=== PATIENT | female | born 1950 | race American Indian/Alaskan Native ===

== ENCOUNTER 2016-11-23 08:27 | Outpatient (CLI) | payer MEDICARE ==
--- NOTE | 2016-11-23 10:27 | Mammography Report ---
BONE DENSITY STUDY: DEFINITIONS: BMD = Bone Mineral Density T-score = BMD related to mean peak bone mass of young adult (mean expressed in Standard Deviation) Z-score = Age matched BMD expressed in SD World Health Organization (WHO) Diagnostic Criteria Normal T-score > -1 SD Osteopenia T-score between -1 and -2.4 SD Osteoporosis T-score -2.5 SD or below FINDINGS: The weighted average BMD of lumbar spine L1-L4 is 0.958 with a T-score of -0.8. The weighted average BMD of hip is 0.877 with a T-score of -0.5. IMPRESSION: The patient's T-score is diagnostic for normal bone density and low relative risk for fracture. NOTE: BMD is not the only risk factor for fracture; also consider factors such as the patient's age, risk of falling, previous osteoporotic fracture, family history of osteoporotic fractures, current smoker, and low body weight. Fitzpatrick's triangle is a region of interest in femur, predominantly of trabecular bone. It is not a true anatomic site, and [facility] does not recommend its use clinically.
== END 2016-11-23 08:28 | disposition home or self-care (01) ==
LOC: MAMMO 08:27
PROVIDERS: ATTEND Emergency Medicine
DX: M85.89 Other specified disorders of bone density and structure, multiple sites (principal)
CPT/HCPCS: 77080

== ENCOUNTER 2017-08-03 12:45 | Emergency (ER) | payer MEDICARE, OTHER ==
[2017-08-03] MEDS ORDERED: TYLENOL PO ONE (12:52)
[2017-08-03] MEDS ORDERED: TYLENOL ONE (12:55)
[2017-08-03] MEDS ORDERED: ZOFRAN ODT PO ONE (16:26)
[2017-08-03] MEDS ORDERED: MORPHINE IV ONE ×2 (16:26→20:51)
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
[2017-08-03 17:04] LABS: Basophils % (Auto) 0.4 % (0.0-1.8); Eosinophils # (Auto) 0.1 K/mm3 (0.0-0.4); Eosinophils % (Auto) 1.5 % (0.0-4.3); Hematocrit 39.1 % (30.3-42.9); Hemoglobin 13.2 gm/dl (10.1-14.3); Lymphocytes # (Auto) 2.7 K/mm3 (1.2-5.4); Lymphocytes % (Auto) 38.8 % (13.4-35.0); Mean Corpuscular HGB Conc 34 % (30-34); Mean Corpuscular Hemoglobin 32 pg (28-32); Mean Corpuscular Volume 94 fl (79-97); Monocytes # (Auto) 0.5 K/mm3 (0.0-0.8); Monocytes % (Auto) 7.1 % (0.0-7.3); Platelet Count 359 K/mm3 (140-440); Red Blood Count 4.18 M/mm3 (3.65-5.03)
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
[2017-08-03 17:14] LABS: INR 0.99 (0.87-1.13)
[2017-08-03 17:15] LABS: Partial Thromboplastin Time 33.7 Sec. (24.2-36.6)
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
[2017-08-03 18:31] VITALS: BP 108/73
[2017-08-03 19:52] LABS: Albumin 4.4 g/dL (3.9-5); Calcium 10.1 mg/dL (8.4-10.2)
[2017-08-03 20:22] LABS: Bacteria,Urine 1+ /HPF (Negative); Bilirubin,Urine NEG (Negative); Blood,Urine SM (Negative); Color,Urine Straw (Yellow); Hyaline Casts,Urine 1 /LPF; Nitrite,Urine NEG (Negative); Protein,Urine <15 mg/dL mg/dL (Negative); Urobilinogen,Urine < 2.0 mg/dL (<2.0)
== END 2017-08-03 21:29 | disposition home or self-care (01) ==
LOC: ED 12:45
DX: S16.1XXA Strain of muscle, fascia and tendon at neck level, initial encounter (principal); I10 Essential (primary) hypertension; E11.9 Type 2 diabetes mellitus without complications; R07.89 Other chest pain; M50.30 Other cervical disc degeneration, unspecified cervical region; K44.9 Diaphragmatic hernia without obstruction or gangrene; N34.2 Other urethritis; R10.31 Right lower quadrant pain; Z88.0 Allergy status to penicillin; Z88.1 Allergy status to other antibiotic agents; V49.49XA Driver injured in collision with other motor vehicles in traffic accident, initial encounter; Y93.89 Activity, other specified; Y92.89 Other specified places as the place of occurrence of the external cause; Y99.8 Other external cause status
CPT/HCPCS: 36415; 70450; 71250; 72125; 74176; 80053; 81001; 84484; 85025; 85610; 85730; 93005; 93010; 96374; 99284; J2270; Q0162

== ENCOUNTER 2018-08-31 17:32 | Inpatient (IN) | payer MEDICARE ==
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
[2018-08-31 18:44] LABS: Basophils # (Auto) 0.1 K/mm3 (0.0-0.1); Basophils % (Auto) 0.7 % (0.0-1.8); Eosinophils # (Auto) 0.2 K/mm3 (0.0-0.4); Eosinophils % (Auto) 1.9 % (0.0-4.3); Hematocrit 38.3 % (30.3-42.9); Hemoglobin 13.1 gm/dl (10.1-14.3); Lymphocytes # (Auto) 2.8 K/mm3 (1.2-5.4); Lymphocytes % (Auto) 31.4 % (13.4-35.0); Mean Corpuscular HGB Conc 34 % (30-34); Mean Corpuscular Volume 92 fl (79-97); Monocytes # (Auto) 0.6 K/mm3 (0.0-0.8); Platelet Count 462 K/mm3 (140-440); Red Blood Count 4.17 M/mm3 (3.65-5.03); Red Cell Distribution Width 13.4 % (13.2-15.2)
[2018-08-31 18:47] LABS: INR 0.9 (0.87-1.13)
[2018-08-31 18:48] LABS: Partial Thromboplastin Time 22.1 Sec. (24.2-36.6)
[2018-08-31 18:58] LABS: Creatine Kinase MB 2.8 ng/mL (0.0-4.0)
[2018-08-31 18:59] LABS: BUN/Creatinine Ratio 13; Blood Urea Nitrogen 16 mg/dL (7-17); Calcium 9.9 mg/dL (8.4-10.2); Hemolysis Index 2
[2018-08-31 19:04] LABS: Free T4 (Free Thyroxine) 1.08 ng/dL (0.76-1.46)
--- NOTE | 2018-08-31 19:06 | XRay Report ---
FINAL REPORT PROCEDURE: Chest. TECHNIQUE: Portable AP view. HISTORY: Dizziness, palpitations, shortness of breath. COMPARISON: No prior studies are available for comparison. FINDINGS: The heart size is normal. There is mild tortuosity of the thoracic aorta. There is probably a large h iatal hernia. The lungs are clear and well expanded. There are no pleural effusions. The regional ske leton appears intact. IMPRESSION: Large hiatal hernia. No evidence of acute disease.
[2018-08-31] MEDS ORDERED: K-DUR PO ONE (19:17)
[2018-08-31] MEDS ORDERED: MAGNESIUM SULFATE 2GM/50ML 2 GM/50 ML BAG IV ONE (19:17)
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
[2018-08-31] MEDS ORDERED: MORPHINE IV ONE (21:32)
[2018-08-31] MEDS ORDERED: ZOFRAN IV ONE (21:32)
[2018-08-31] MEDS ORDERED: TYLENOL PO PRN (22:32)
[2018-08-31] MEDS ORDERED: ZOFRAN IV PRN (22:33)
[2018-08-31] MEDS ORDERED: MORPHINE IV PRN (22:33)
[2018-08-31] MEDS ORDERED: NITROSTAT SL PRN (22:34)
[2018-08-31] MEDS: NITRO-BID 2% TP SCH (23:24)
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
[2018-09-01 05:55] LABS: Creatine Kinase MB 2.2 ng/mL (0.0-4.0)
[2018-09-01] MEDS: NITRO-BID 2% TP SCH ×4 (06:24→18:29)
[2018-09-01 07:59] LABS: Calcium 9.7 mg/dL (8.4-10.2)
[2018-09-01] MEDS ORDERED: LEXISCAN IV ONE ×2 (10:26→10:27)
[2018-09-01] MEDS: ASPIRIN PO SCH (12:43)
--- NOTE | 2018-09-01 14:09 | Vascular Lab Report ---
FINAL REPORT EXAM: VL CAROTID DUPLEX BILAT HISTORY: LEFT SIDED WEAKNESS AND NUMBNESS COMPARISON: None. TECHNIQUE: Duplex Doppler ultrasound of the bilateral carotid arteries was performed. FINDINGS: The right common carotid artery is patent. There is a small amount of intimal thickening of the right internal carotid artery without significant stenosis (less than 50 percent). The right external bryan tid artery is patent. The right vertebral artery is antegrade in flow. The left common carotid artery is patent. There is a small amount of intimal thickening of the left c arotid bulb and proximal left internal carotid artery without significant stenosis (less than 50 perc ent). The left external carotid artery is patent. The left vertebral artery is antegrade in flow Peak systolic velocities (cm/sec) are as follows: Right common carotid artery: 90 Right internal carotid artery: 73.1 Right external carotid artery: 30.9 Left common carotid artery: 99.6 Left internal carotid artery: 60.3 Left external carotid artery: 70.2 Peak systolic velocity ratio between the right internal carotid artery and the right common carotid a rtery: 0.81 Peak systolic velocity ratio between the left internal carotid artery and left common carotid artery: 0.61 IMPRESSION: Only small amount of intimal thickening of the bilateral internal carotid arteries without significan t stenosis (less than 50 percent).
--- NOTE | 2018-09-01 14:32 | Treadmill Report ---
LEXISCAN STRESS TEST REPORT REASON FOR STUDY: Chest pain. IMAGING PROTOCOL: The patient received 0.4 mg of Lexiscan intravenously over 10 seconds. Technetium-99m tetrofosmin was subsequently injected. Baseline EKG, normal sinus rhythm. Lexiscan EKG, no ischemic changes. No chest pain. No arrhythmias. IMPRESSION: Electrocardiographically negative stress test. Nuclear imaging report to follow. JOB# [id number]/NTS
--- NOTE | 2018-09-01 16:48 | Progress Note ---
Assessment and Plan Assessment and plan: 67-year-old female patient with significant past medical history of diabetes hypertension was admitted with left-sided upper and lower extremity tingling and numbness and weakness., Neuro workup is in progress, neurology evaluation pending --Left-sided weakness and numbness; Not a candidate for TPA Continue aspirin and statin Neuro workup is in progress,, Negative workup so far, pending neurology consultation, Follow-up MRI/MRA studies Physical therapy, occupational therapy, rehabilitation Workup: CT head without contrast; no acute abnormality noted CT cervical spine; no acute abnormality noted Echocardiogram; left ventricle ejection fraction 70-75%, abnormal diastolic filling Impaired relaxation Carotid Doppler; small amount of intimal thickening in the bilateral internal carotid arteries less than 50% stenosis Exercise stress test; negative for reversible ischemia --Chest pain; atypical; probably noncardiac Stress test negative, follow echocardiogram Continue current cardiac medications --Gastroesophageal reflux disease; Protonix --Hypokalemia; replace per protocol and monitor levels --Hypomagnesemia; to place per protocol and monitor levels --DVT prophylaxis; Lovenox Closely monitor the patient and adjust the management as needed Follow-up neurology evaluation and recommendations Disposition; follow neurology evaluation and recommendations Follow MRI/MRA If negative and stable condition discharged home tomorrow History Interval history: Patient seen and examined medical records reviewed Admitted with left-sided weakness and chest pain Stress test negative for reversible ischemia Neuro workup is in progress Patient still has left-sided lower extremity weakness Alert awake oriented 3 vital signs reviewed Hospitalist Physical - Constitutional Vitals: Temp Pulse Resp BP Pulse Ox 98.6 F 98 H 16 92/58 98 09/01/18 06:22 09/01/18 10:52 09/01/18 08:29 09/01/18 10:52 08/31/18 23:04 General appearance: Present: no acute distress, mild distress, well-nourished. Absent: cachectic, disheveled - EENT Eyes: Present: PERRL, EOM intact - Neck Neck: Present: supple, normal ROM - Respiratory Respiratory effort: normal Respiratory: bilateral: diminished, negative: rales, rhonchi, wheezing - Cardiovascular Rhythm: regular Heart Sounds: Present: S1 & S2 - Extremities Extremities: no ischemia, No edema - Abdominal General gastrointestinal: soft, non-tender, non-distended, normal bowel sounds - Integumentary Integumentary: Present: clear, warm - Psychiatric Psychiatric: appropriate mood/affect, cooperative - Neurologic Neurologic: other (left lower extremity weakness) Results - Labs CBC & Chem 7: 08/31/18 18:29 09/01/18 05:11 Labs: Laboratory Last Values WBC 8.8 K/mm3 (4.5-11.0) 08/31/18 18: RBC 4.17 M/mm3 (3.65-5.03) 08/31/18 18: Hgb 13.1 gm/dl (10.1-14.3) 08/31/18 18: Hct 38.3 % (30.3-42.9) 08/31/18 18: MCV 92 fl (79-97) 08/31/18 18: MCH 31 pg (28-32) 08/31/18 18: MCHC 34 % (30-34) 08/31/18 18: RDW 13.4 % (13.2-15.2) 08/31/18 18: Plt Count 462 K/mm3 (140-440) H 08/31/18 18: Lymph % (Auto) 31.4 % (13.4-35.0) 08/31/18 18: [place] % (Auto) 7.0 % (0.0-7.3) 08/31/18 18: Eos % (Auto) 1.9 % (0.0-4.3) 08/31/18 18: Baso % (Auto) 0.7 % (0.0-1.8) 08/31/18 18: Lymph # 2.8 K/mm3 (1.2-5.4) 08/31/18 18: [place] # 0.6 K/mm3 (0.0-0.8) 08/31/18 18: Eos # 0.2 K/mm3 (0.0-0.4) 08/31/18 18: Baso # 0.1 K/mm3 (0.0-0.1) 08/31/18 18: Seg Neutrophils % 59.0 % (40.0-70.0) 08/31/18 18: Seg Neutrophils # 5.2 K/mm3 (1.8-7.7) 08/31/18 18:29 PT 12.6 Sec. (12.2-14.9) 08/31/18 18:29 INR 0.90 (0.87-1.13) 08/31/18 18:29 APTT 22.1 Sec. (24.2-36.6) L 08/31/18 18:29 Sodium 143 mmol/L (137-145) 09/01/18 05:11 Potassium 3.6 mmol/L (3.6-5.0) 09/01/18 05:11 Chloride 102.6 mmol/L (98-107) 09/01/18 05:11 Carbon Dioxide 23 mmol/L (22-30) 09/01/18 05:11 Anion Gap 21 mmol/L 09/01/18 05:11 BUN 16 mg/dL (7-17) 09/01/18 05:11 Creatinine 1.2 mg/dL (0.7-1.2) 09/01/18 05:11 Estimated GFR 54 ml/min 09/01/18 05:11 BUN/Creatinine Ratio 13 % 09/01/18 05:11 Glucose 101 mg/dL (65-100) H 09/01/18 05:11 POC Glucose 85 (70-105) 09/01/18 12:58 Calcium 9.7 mg/dL (8.4-10.2) 09/01/18 05:11 Magnesium 1.50 mg/dL (1.7-2.3) L 08/31/18 18:29 Total Creatine Kinase 160 units/L (30-135) H 09/01/18 14:51 CK-MB (CK-2) 2.0 ng/mL (0.0-4.0) 09/01/18 14:51 CK-MB (CK-2) Rel Index 1.2 (0-4) 09/01/18 14:51 Troponin T < 0.010 ng/mL (0.00-0.029) 09/01/18 05:11 TSH 3.280 mlU/mL (0.270-4.200) 08/31/18 18:29 Free T4 1.08 ng/dL (0.76-1.46) 08/31/18 18:29
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
--- NOTE | 2018-09-01 22:20 | Treadmill Report ---
THALLIUM REPORT REASON FOR STUDY: Chest pain. IMAGING PROTOCOL: The patient received 10.16 mCi of Tc-99m Tetrofosmin for rest imaging and 30.04 mCi of technetium-99m Tetrofosmin for stress imaging. Imaging for all procedures was completed 30-90 minutes following the initial injection of Technetium 99m Tetrofosmin. SPECT imaging in the 180 degree arc was performed in the right anterior oblique projection. Computerized reconstruction of the images was performed for analysis. NUCLEAR IMAGING RESULTS: Normal left ventricular cavity size with no change from stress to rest. Distribution of radionuclide within the left ventricle revealed normal myocardial photon uptake with stress and rest imaging. Gated SPECT imaging revealed hyperdynamic global left ventricular systolic function. The calculated left ventricular ejection fraction is 81%. IMPRESSION: Normal stress and rest myocardial perfusion imaging. Hyperdynamic global left ventricular systolic function. EF 81%. No evidence of significant stress-induced ischemia or prior infarction. JOB# [id number] JUDI/LEONELA
[2018-09-01] MEDS: PEPCID PO SCH (22:29)
[2018-09-02 06:56] LABS: Calcium 9.2 mg/dL (8.4-10.2); Chol/HDL Ratio 2.85 %
[2018-09-02] MEDS: NITRO-BID 2% TP SCH ×4 (08:21→18:05)
[2018-09-02] MEDS ORDERED: K-DUR PO ONE (10:00)
[2018-09-02] MEDS: ASPIRIN PO SCH (10:12)
[2018-09-02] MEDS: PEPCID PO SCH ×2 (10:12→21:34)
--- NOTE | 2018-09-02 15:50 | Progress Note ---
Assessment and Plan Assessment and plan: 67-year-old female patient with significant past medical history of diabetes hypertension was admitted with left-sided upper and lower extremity tingling and numbness and weakness * CT head without contrast; no acute abnormality noted * CT cervical spine; no acute abnormality noted * Echocardiogram; left ventricle ejection fraction 70-75%, abnormal diastolic filling, Impaired relaxation * Carotid Doppler; small amount of intimal thickening in the bilateral internal carotid arteries less than 50% stenosis * Exercise stress test; negative for reversible ischemia --Left-sided weakness and numbness; Not a candidate for TPA, Continue aspirin and statin Neuro workup is in progress,, Negative workup so far, pending neurology consultation, Follow-up MRI/MRA studies Physical therapy, occupational therapy, rehabilitation --Chest pain; atypical; probably noncardiac Stress test negative, follow echocardiogram Continue current cardiac medications --Gastroesophageal reflux disease; Protonix --Hypokalemia; replace per protocol and monitor levels --Hypomagnesemia; to place per protocol and monitor levels --DVT prophylaxis; Lovenox Closely monitor the patient and adjust the management as needed Follow-up neurology evaluation and recommendations Disposition; follow neurology evaluation and recommendations Follow MRI/MRA brain Still waiting on Mri brain History Interval history: Patient was seen and examined. Follow-up on current diagnosis of left side weakness. Overnight uneventful. Patient denies any chest pain, shortness breath, nausea/vomiting or severe headaches. Imaging, nursing note, chart, labs and old chart reviewed. Discussed with patient. Hospitalist Physical - Physical exam Narrative exam: Gen: WDWN, NAD, Awake, Alert, Orientated HEENT: NCAT, EOMI, PERRL, OP Clear Neck: supple, no adenopathy, no thyromegaly, no JVD CVS/Heart: RRR, normal S1S2, pulses present bilaterally Chest/Lungs: CTA B, Symmetrical chest expansion, good air entry bilaterally GI/Abdomen: soft, NTND, good bowel sounds, no guarding or rebound /Bladder: no suprapubic tenderness, no CVA or paraspinal tenderness Extermity/Skin: no c/c/e, no obvious rash MSK: FROM x 4 Neuro: CN 2-12 grossly intact, no new focal deficits Psych: calm - Constitutional Vitals: Temp Pulse Resp BP Pulse Ox 98.6 F 74 18 92/58 97 09/01/18 06:22 09/02/18 07:00 09/02/18 09:19 09/01/18 10:52 09/02/18 09:19 General appearance: Present: no acute distress, mild distress, well-nourished. Absent: cachectic, disheveled Results - Labs CBC & Chem 7: 08/31/18 18:29 09/02/18 05:21 Labs: Laboratory Last Values WBC 8.8 K/mm3 (4.5-11.0) 08/31/18 18: RBC 4.17 M/mm3 (3.65-5.03) 08/31/18 18: Hgb 13.1 gm/dl (10.1-14.3) 08/31/18 18: Hct 38.3 % (30.3-42.9) 08/31/18 18: MCV 92 fl (79-97) 08/31/18 18: MCH 31 pg (28-32) 08/31/18 18: MCHC 34 % (30-34) 08/31/18 18: RDW 13.4 % (13.2-15.2) 08/31/18 18: Plt Count 462 K/mm3 (140-440) H 08/31/18 18: Lymph % (Auto) 31.4 % (13.4-35.0) 08/31/18 18: [place] % (Auto) 7.0 % (0.0-7.3) 08/31/18 18: Eos % (Auto) 1.9 % (0.0-4.3) 08/31/18 18: Baso % (Auto) 0.7 % (0.0-1.8) 08/31/18 18: Lymph # 2.8 K/mm3 (1.2-5.4) 08/31/18 18: [place] # 0.6 K/mm3 (0.0-0.8) 08/31/18 18: Eos # 0.2 K/mm3 (0.0-0.4) 08/31/18 18: Baso # 0.1 K/mm3 (0.0-0.1) 08/31/18 18: Seg Neutrophils % 59.0 % (40.0-70.0) 08/31/18 18:29 Seg Neutrophils # 5.2 K/mm3 (1.8-7.7) 08/31/18 18:29 PT 12.6 Sec. (12.2-14.9) 08/31/18 18:29 INR 0.90 (0.87-1.13) 08/31/18 18:29 APTT 22.1 Sec. (24.2-36.6) L 08/31/18 18:29 Sodium 142 mmol/L (137-145) 09/02/18 05:21 Potassium 3.5 mmol/L (3.6-5.0) L 09/02/18 05:21 Chloride 101.4 mmol/L (98-107) 09/02/18 05:21 Carbon Dioxide 27 mmol/L (22-30) 09/02/18 05:21 Anion Gap 17 mmol/L 09/02/18 05:21 BUN 23 mg/dL (7-17) H 09/02/18 05:21 Creatinine 1.5 mg/dL (0.7-1.2) H 09/02/18 05:21 Estimated GFR 42 ml/min 09/02/18 05:21 BUN/Creatinine Ratio 15 % 09/02/18 05:21 Glucose 115 mg/dL (65-100) H 09/02/18 05:21 POC Glucose 179 (70-105) H 09/02/18 11:27 Calcium 9.2 mg/dL (8.4-10.2) 09/02/18 05:21 Phosphorus 3.70 mg/dL (2.5-4.5) 09/02/18 05:21 Magnesium 1.90 mg/dL (1.7-2.3) 09/02/18 05:21 Total Creatine Kinase 160 units/L (30-135) H 09/01/18 14:51 CK-MB (CK-2) 2.0 ng/mL (0.0-4.0) 09/01/18 14:51 CK-MB (CK-2) Rel Index 1.2 (0-4) 09/01/18 14:51 Troponin T < 0.010 ng/mL (0.00-0.029) 09/01/18 05:11 Triglycerides 65 mg/dL (2-149) 09/02/18 05:21 Cholesterol 117 mg/dL (50-199) 09/02/18 05:21 LDL Cholesterol Direct 71 mg/dL (50-130) 09/02/18 05:21 HDL Cholesterol 41 mg/dL (40-59) 09/02/18 05:21 Cholesterol/HDL Ratio 2.85 % 09/02/18 05:21 TSH 3.280 mlU/mL (0.270-4.200) 08/31/18 18:29 Free T4 1.08 ng/dL (0.76-1.46) 08/31/18 18:29
--- NOTE | 2018-09-02 21:23 | Magnetic Resonance Report ---
FINAL REPORT PROCEDURE: MR BRAIN WO CON TECHNIQUE: Magnetic resonance imaging of the brain was performed without contrast material. HISTORY: left sided weaknessinpatientsome pt motion; pt has persistent dry cough; best images sent COMPARISON: No prior studies are available for comparison. FINDINGS: Skull base and calvarium: Normal. Paranasal sinuses: The visualized paranasal sinuses are clear. Cerebellum: No evidence of hemorrhage, ischemia or mass. Brainstem: No evidence of hemorrhage, ischemia or mass. Cerebrum: Multiple small nonspecific focal signal abnormalities are noted involving subcortical and c entral white matter bilaterally which are predominantly isointense on T1 and hyperintense on FLAIR an d T2 weighted images without any associated mass effect. Diffusion-weighted images failed to demonstr ate any hyperintense signal abnormalities.. Ventricles: Normal in size and morphology for the patient's age. Pituitary gland and sella: Normal. Globes and orbits: Normal. Vasculature: Normal arterial and venous flow voids. Other: None. IMPRESSION: No acute intracranial abnormality Multiple nonspecific bilateral cerebral white matter signal abnormalities are of nonspecific nature a nd most likely represent chronic small vessel ischemic changes. However a demyelinating process canno t be excluded.
--- NOTE | 2018-09-02 21:26 | Magnetic Resonance Report ---
FINAL REPORT PROCEDURE: MR MRA/MRV HEAD WO CON TECHNIQUE: Axial 3-D [id number] MR angiography of the [place] and brain was performed. The source images were reconstructed in various views using maximum intensity projection. HISTORY: left sided weaknessinpatient COMPARISON: No prior studies are available for comparison. FINDINGS: Vertebral arteries: Normal. 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 This is a no rmal variation. Internal carotid arteries: Normal. Anterior cerebral arteries: Normal. Middle cerebral arteries: Normal. Posterior cerebral arteries: Normal. Aneurysms: None. IMPRESSION: Unremarkable study
[2018-09-03 06:03] LABS: Calcium 9.3 mg/dL (8.4-10.2)
[2018-09-03] MEDS: ASPIRIN PO SCH (09:55)
[2018-09-03] MEDS: NITRO-BID 2% TP SCH (09:56)
[2018-09-03] MEDS: PEPCID PO SCH (09:56)
--- NOTE | 2018-09-03 12:19 | Discharge Summary ---
Providers - Providers Date of Admission: 08/31/18 21:42 Date of discharge: 09/03/18 Attending physician: SARAI URRUTIA 09/01/18 06:00 Consult to Physician [CONS] Routine Comment: Consulting Provider: SUZIE MCCLAIN Physician Instructions: Reason For Exam: LEFT SIDED NUMBNESS AND WEAKNESS Physical Therapy Evaluation and Treat [CONS] Routine Comment: Reason For Exam: LEFT SIDED WEAKNESS Primary care physician: KIMBERLEY CARNES Hospitalization Condition: Stable Hospital course: 67-year-old female patient with significant past medical history of diabetes hypertension was admitted with left-sided upper and lower extremity tingling and numbness and weakness * CT head without contrast; no acute abnormality noted * CT cervical spine; no acute abnormality noted * Echocardiogram; left ventricle ejection fraction 70-75%, abnormal diastolic filling, Impaired relaxation * Carotid Doppler; small amount of intimal thickening in the bilateral internal carotid arteries less than 50% stenosis * Exercise stress test; negative for reversible ischemia --Left-sided weakness and numbness; most likely Cervical Radiculopathy --Chest pain; atypical; probably noncardiac --Gastroesophageal reflux disease; Protonix --Hypokalemia; replace per protocol and monitor levels --Hypomagnesemia; to place per protocol and monitor levels MRI/MRA brain, unremarkable Disposition: DC- TO HOME OR SELFCARE Time spent for discharge: 34 minutes Core Measure Documentation - Palliative Care Palliative Care/ Comfort Measures: Not Applicable - Core Measures Any of the following diagnoses?: none - VTE Discharge Requirements Deep Vein Thrombosis/Pulmonary Embolism Present on Admission: No Has pt received <5 days of overlap therapy or INR<2.0: No Anticoagulant overlap therapy prescribed at discharge: No Contraindication No Overlap Therapy order at DC: Not Indicated Exam - Physical Exam Narrative exam: Gen: WDWN, NAD, Awake, Alert, Orientated HEENT: NCAT, EOMI, PERRL, OP Clear Neck: supple, no adenopathy, no thyromegaly, no JVD CVS/Heart: RRR, normal S1S2, pulses present bilaterally Chest/Lungs: CTA B, Symmetrical chest expansion, good air entry bilaterally GI/Abdomen: soft, NTND, good bowel sounds, no guarding or rebound /Bladder: no suprapubic tenderness, no CVA or paraspinal tenderness Extermity/Skin: no c/c/e, no obvious rash MSK: FROM x 4 Neuro: CN 2-12 grossly intact, no new focal deficits Psych: calm - Constitutional Vitals: Temp Pulse Resp BP Pulse Ox 98.2 F 76 16 110/73 98 09/03/18 09:34 09/03/18 09:56 09/03/18 09:34 09/03/18 09:56 09/03/18 09:34 Plan Activity: other (no strenous activity unless cleared by PCP) Diet: low salt, diabetic Follow up with: KIMBERLEY CARNES MD [Primary Care Provider] - 7 Days
[2018-09-03 13:42] VITALS: BP 94/64
== END 2018-09-03 18:30 | disposition home or self-care (01) | DRG 74 ==
LOC: ED 17:32 → 4A 21:42
PROVIDERS: ADMIT Internal Medicine; ATTEND Internal Medicine
DX: M54.12 Radiculopathy, cervical region (principal); E87.6 Hypokalemia; R20.0 Anesthesia of skin; E83.42 Hypomagnesemia; N18.3 Chronic kidney disease, stage 3 (moderate); E11.22 Type 2 diabetes mellitus with diabetic chronic kidney disease; I12.9 Hypertensive chronic kidney disease with stage 1 through stage 4 chronic kidney disease, or unspecified chronic kidney disease; R07.89 Other chest pain; K21.9 Gastro-esophageal reflux disease without esophagitis; Z88.1 Allergy status to other antibiotic agents; Z88.0 Allergy status to penicillin; Z79.899 Other long term (current) drug therapy
CPT/HCPCS: 36415; 70450; 70544; 70551; 71045; 72125; 78452; 80048; 80061; 82550; 82553; 82962; 83735; 84100; 84439; 84443; 84484; 85025; 85610; 85730; 93005; 93010; 93017; 93306; 93880; G0378; A9270-GY; A9502; J2270; J2405; J2785; J3475

== ENCOUNTER 2019-02-27 05:41 | Inpatient (IN) | payer MEDICARE, OTHER ==
--- NOTE | 2019-02-27 06:27 | Emergency Department Report ---
ED Chest Pain HPI - General Chief Complaint: Chest Pain Stated Complaint: CHEST PAIN Time Seen by Provider: 02/27/19 06:01 Source: patient, EMS Mode of arrival: Stretcher Limitations: No Limitations - History of Present Illness Initial Comments: 68-year-old female with history of hypertension, diabetes presents to ED with left-sided chest pain since yesterday. Patient describes pain as intermittent tightness. Denies any aggravating or alleviating factors. Denies nausea, vomiting, shortness of breath, diaphoresis or leg pain. MD Complaint: chest pain -: days(s) (1) Onset: during rest Pain Location: left chest Pain Radiation: none Severity: moderate Severity scale (0 -10): 7 Quality: tightness Consistency: intermittent Improves With: nothing Worsens With: nothing re: denies: nausea, vomting, diaphoresis, dyspnea Other Symptoms: leg swelling. denies: cough, fever - Related Data Home Medications Medication Instructions Recorded Confirmed Last Taken AtorvaSTATin 40 mg PO DAILY 02/27/19 02/27/19 Unknown Chlorthalidone 25 mg PO DAILY 02/27/19 02/27/19 Unknown HumaLOG 12 units SUB-Q BID 02/27/19 02/27/19 Unknown Lantus VIAL 50 units SUB-Q HS 02/27/19 02/27/19 Unknown Lisinopril 10 mg PO 02/27/19 Unknown metFORMIN 500 mg PO DAILY 02/27/19 02/27/19 Unknown Allergies Allergy/AdvReac Type Severity Reaction Status Date / Time levofloxacin [From Levaquin] Allergy Swelling Verified 02/27/19 05:59 Penicillins Allergy Nausea Verified 02/27/19 05:59 Heart Score - HEART Score History: Slightly suspicious EKG: Normal Age: > 65 Risk factors: 1-2 risk factors Troponin: < normal limit HEART Score: 3 - Critical Actions Critical Actions: 0-3 pts:0.9-1.7%risk of adverse cardiac event.Candidate for discharge ED Review of Systems ROS: Stated complaint: CHEST PAIN Other details as noted in HPI Comment: All other systems reviewed and negative Constitutional: denies: chills, fever Respiratory: denies: cough, shortness of breath Cardiovascular: chest pain ED Past Medical Hx - Past Medical History Previous Medical History?: Yes Hx Hypertension: Yes Hx Diabetes: Yes Hx Renal Disease: Yes Additional medical history: high cholesterol - Surgical History Past Surgical History?: No - Social History Smoking Status: Never Smoker Substance Use Type: None - Medications Home Medications: Home Medications Medication Instructions Recorded Confirmed Last Taken Type AtorvaSTATin 40 mg PO DAILY 02/27/19 02/27/19 Unknown History Chlorthalidone 25 mg PO DAILY 02/27/19 02/27/19 Unknown History HumaLOG 12 units SUB-Q BID 02/27/19 02/27/19 Unknown History Lantus VIAL 50 units SUB-Q HS 02/27/19 02/27/19 Unknown History Lisinopril 10 mg PO 02/27/19 Unknown History metFORMIN 500 mg PO DAILY 02/27/19 02/27/19 Unknown History ED Physical Exam - General Limitations: No Limitations General appearance: alert, in no apparent distress - Head Head exam: Present: atraumatic, normocephalic - Eye Eye exam: Present: normal appearance - ENT ENT exam: Present: mucous membranes moist - Neck Neck exam: Present: normal inspection - Respiratory Respiratory exam: Present: normal lung sounds bilaterally, chest wall tenderness. Absent: respiratory distress - Cardiovascular Cardiovascular Exam: Present: regular rate, normal rhythm - GI/Abdominal GI/Abdominal exam: Present: soft. Absent: distended, tenderness - Extremities Exam Extremities exam: Present: normal inspection. Absent: pedal edema, calf tenderness - Neurological Exam Neurological exam: Present: alert, oriented X3 - Psychiatric Psychiatric exam: Present: normal affect, normal mood - Skin Skin exam: Present: warm, dry, intact, normal color ED Course Vital Signs 02/27/19 02/27/19 02/27/19 05:59 06:00 06:31 Temperature 98.2 F Pulse Rate 72 77 73 Respiratory 13 14 9 L Rate Blood Pressure 135/92 131/86 128/80 Blood Pressure 135/92 [Left] O2 Sat by Pulse 98 98 Oximetry ED Medical Decision Making - Lab Data Result diagrams: 02/27/19 06:31 02/27/19 06:31 - EKG Data -: EKG Interpreted by Me EKG shows normal: sinus rhythm, axis, intervals, QRS complexes, ST-T waves Rate: normal - EKG Data Interpretation: no acute changes - Radiology Data Radiology results: report reviewed, image reviewed - Medical Decision Making 68-year-old female with history of hypertension and diabetes presents to the ED with left-sided chest pain x 1 day. Chest pain improved at this time. EKG normal, troponin normal. Will admit to hospitalist for further evaluation. - Differential Diagnosis ACS, chest wall pain, pneumonia Critical care attestation.: If time is entered above; I have spent that time in minutes in the direct care of this critically ill patient, excluding procedure time. ED Disposition Clinical Impression: Acute chest pain Disposition: OP ADMIT IP TO THIS HOSP Is pt being admited?: Yes Condition: Stable Time of Disposition: 08:39
[2019-02-27] MEDS ORDERED: ASPIRIN PO ONE (06:28)
[2019-02-27 06:45] LABS: Basophils % (Auto) 0.5 % (0.0-1.8); Eosinophils # (Auto) 0.2 K/mm3 (0.0-0.4); Eosinophils % (Auto) 2.6 % (0.0-4.3); Hematocrit 35.1 % (30.3-42.9); Hemoglobin 11.9 gm/dl (10.1-14.3); Lymphocytes # (Auto) 2.3 K/mm3 (1.2-5.4); Lymphocytes % (Auto) 34.7 % (13.4-35.0); Mean Corpuscular HGB Conc 34 % (30-34); Mean Corpuscular Volume 91 fl (79-97); Monocytes # (Auto) 0.5 K/mm3 (0.0-0.8); Monocytes % (Auto) 7.9 % (0.0-7.3); Platelet Count 369 K/mm3 (140-440); Red Blood Count 3.85 M/mm3 (3.65-5.03)
--- NOTE | 2019-02-27 06:50 | XRay Report ---
CHEST 1 VIEW 02/27/2019 6:32 AM INDICATION / CLINICAL INFORMATION: chest pain. COMPARISON: None available. FINDINGS: SUPPORT DEVICES: None. HEART / MEDIASTINUM: No significant abnormality. LUNGS / PLEURA: No significant pulmonary or pleural abnormality. No pneumothorax. ADDITIONAL FINDINGS: No significant additional findings. IMPRESSION: 1. No acute findings. Signer Name: Brett Machado MD Signed: 02/27/2019 6:46 AM Workstation Name: [id number]
[2019-02-27 06:57] LABS: INR 0.94 (0.87-1.13)
[2019-02-27 07:04] LABS: BUN/Creatinine Ratio 13; Blood Urea Nitrogen 14 mg/dL (7-17); Calcium 9.8 mg/dL (8.4-10.2); Hemolysis Index 123
[2019-02-27] MEDS ORDERED: TYLENOL PO PRN (10:18)
--- NOTE | 2019-02-27 10:47 | Progress Note ---
Subjective Date of service: 02/27/19 Objective - Constitutional Vitals: Vital Signs - 12hr 02/27/19 02/27/19 02/27/19 05:59 06:00 06:31 Temperature 98.2 F Pulse Rate 72 77 73 Respiratory 13 14 9 L Rate Blood Pressure 135/92 131/86 128/80 Blood Pressure 135/92 [Left] O2 Sat by Pulse 98 98 Oximetry - Labs CBC & Chem 7: 02/27/19 06:31 02/27/19 06:31 Labs: Abnormal lab results 02/27/19 02/27/19 Range/Units 06:31 06:31 RDW 13.0 L (13.2-15.2) % [place] % (Auto) 7.9 H (0.0-7.3) % Glucose 104 H (65-100) mg/dL
--- NOTE | 2019-02-27 11:01 | History and Physical Report ---
History of Present Illness Date of examination: 02/27/19 Date of admission: 02/27/19 08:39 Chief complaint: chest pain History of present illness: 68-year-old female with history of hypertension, diabetes presents to ED with left-sided chest pain since yesterday. Patient describes pain as intermittent, 6/10 in intensity, Denies any aggravating or alleviating factors or any nausea, vomiting, shortness of breath, diaphoresis or leg pain.She had negaticve work up back on August 2018 with a normal stress test and preserved EF On 2d echo. her Álvaro are normal, CXR no infiltrates. she will be admissted for further mx. Cardilogy consulted in the ER. Past History Past Medical History: diabetes, hypertension Past Surgical History: No surgical history Social history: lives with family. denies: smoking, alcohol abuse, prescription drug abuse Family history: no significant family history Review of System: Constitutional: no fever, no chills, no weight loss Ears, eyes, nose, mouth and throat: no nasal congestion, no nasal discharge, no sinus pressure, no vision change, no red eye. Neck: No neck pain or rigidity. Cardiovascular: +chest pain, no orthopnea, no palpitations, no leg swelling Respiratory: No shortness of breath, no cough, no congestion, no wheezing Gastrointestinal: no abdominal pain, no nausea, no vomiting Genitourinary : no dysuria, no hematuria Musculoskeletal: no joint swelling or muscle ache Integumentary: no rash, no pruritis Neurological: no parathesias, no numbness, no tingling Endocrine: no cold or heat intolerance, no polyuria or polydipsia Hematologic/Lymphatic: no easy bruising, no easy bleeding, no gland swelling Allergic/Immunologic: no urticaria, no angioedema. Medications and Allergies Allergies Allergy/AdvReac Type Severity Reaction Status Date / Time levofloxacin [From Levaquin] Allergy Swelling Verified 02/27/19 05:59 Penicillins Allergy Nausea Verified 02/27/19 05:59 Home Medications Medication Instructions Recorded Confirmed Last Taken Type AtorvaSTATin 40 mg PO DAILY 02/27/19 02/27/19 Unknown History Chlorthalidone 25 mg PO DAILY 02/27/19 02/27/19 Unknown History HumaLOG 12 units SUB-Q BID 02/27/19 02/27/19 Unknown History Lantus VIAL 50 units SUB-Q HS 02/27/19 02/27/19 Unknown History Lisinopril 10 mg PO QDAY 02/27/19 02/27/19 Unknown History metFORMIN 500 mg PO DAILY 02/27/19 02/27/19 Unknown History Active Meds: Active Medications Acetaminophen (Tylenol) 650 mg PO Q4H PRN PRN Reason: Non Cardiac Pain or Temp>100.5 Famotidine (Pepcid) 20 mg PO BID TAN Exam - Physical Exam Narrative exam: GENERAL: well-developed and well-nourished -Iranian elderly female lying on bed appeared to be in no discomfort. HEENT: Normocephalic. Atraumatic. No conjunctival congestion or icterus. Patient has moist mucous membranes. NECK: Supple. Trachea midline. CHEST/LUNGS: Clear to auscultated bilaterally, breathing nonlabored. No wheezes crackles or rhonchi. HEART/CARDIOVASCULAR: Regular in rate and rhythm. S1 and S2 positive. ABDOMEN: Abdomen is soft, nontender. Patient has normal bowel sounds. SKIN: There is no rash. Warm and dry. NEURO: No focal motor deficit. Follows command. MUSCULOSKELETAL: No joint effusion or tenderness. EXTRIMITY: No edema, no cyanosis or clubbing. PSYCH: Cooperative. - Constitutional Vitals: Temp Pulse Resp BP Pulse Ox 98.2 F 73 9 L 128/80 98 02/27/19 05:59 02/27/19 06:31 02/27/19 06:31 02/27/19 06:31 02/27/19 06:31 Results - Labs CBC & Chem 7: 02/27/19 06:31 02/27/19 06:31 Labs: Abnormal lab results 02/27/19 02/27/19 Range/Units 06:31 06:31 RDW 13.0 L (13.2-15.2) % [place] % (Auto) 7.9 H (0.0-7.3) % Glucose 104 H (65-100) mg/dL Assessment and Plan Chest pain Normal MPI 08/2018 Normal ECG Negative troponin x 3 Type II DM Systemic Hypertension Hyperlipidemia - - will admit to telemetry bed - monitor with serial CE and EKG - will place on Aspirin, statin - as needed SL NTG and iv morphin for pain - Monitor BP, add betablocker and ACEI if BP tolerates -Consult cardiology for further management - cardiac/consistent carb diet now, resume home meds - provide DVT Px with lovenox
--- NOTE | 2019-02-27 14:21 | Consultation ---
History of Present Illness Consult date: 02/27/19 Consult reason: chest pain History of present illness: 68 year old female presenting with recurrent chest pain x 6 months. Chest pain is described as squeezing sensation in the chest radiating down the left arm, with numbness. There is also numbness of the LLE sometimes. Patient had a stress test Aug 2018 showing no ischemia. ECG is showing NSR and troponin is negative. Patient denies chest pain or shortness of breath with exertion. Past History Past Medical History: diabetes, hyperthyroidism, hyperlipidemia Past Surgical History: No surgical history Social history: no significant social history Family history: no significant family history Medications and Allergies Allergies Allergy/AdvReac Type Severity Reaction Status Date / Time levofloxacin [From Levaquin] Allergy Swelling Verified 02/27/19 05:59 Penicillins Allergy Nausea Verified 02/27/19 05:59 Home Medications Medication Instructions Recorded Confirmed Last Taken Type AtorvaSTATin 40 mg PO DAILY 02/27/19 02/27/19 Unknown History Chlorthalidone 25 mg PO DAILY 02/27/19 02/27/19 Unknown History HumaLOG 12 units SUB-Q BID 02/27/19 02/27/19 Unknown History Lantus VIAL 50 units SUB-Q HS 02/27/19 02/27/19 Unknown History Lisinopril 10 mg PO 02/27/19 Unknown History metFORMIN 500 mg PO DAILY 02/27/19 02/27/19 Unknown History Active Meds: Active Medications Acetaminophen (Tylenol) 650 mg PO Q4H PRN PRN Reason: Non Cardiac Pain or Temp>100.5 Famotidine (Pepcid) 20 mg PO BID TAN Review of Systems All systems: negative Physical Examination Vital Signs Temp Pulse Resp BP Pulse Ox 98.2 F 72 13 135/92 98 02/27/19 05:59 02/27/19 05:59 02/27/19 05:59 02/27/19 05:59 02/27/19 05:59 General appearance: no acute distress Neck: Positive: neck supple Cardiac: Positive: Reg Rate and Rhythm Lungs: Positive: Normal Exam Neuro: Positive: Grossly Intact Abdomen: Positive: Soft Extremities: Present: normal Results 02/27/19 06:31 02/27/19 06:31 Coagulation 02/27/19 Range/Units 06:31 PT 12.3 (12.2-14.9) Sec. INR 0.94 (0.87-1.13) APTT 32.0 (24.2-36.6) Sec. CBC 02/27/19 Range/Units 06:31 WBC 6.6 (4.5-11.0) K/mm3 RBC 3.85 (3.65-5.03) M/mm3 Hgb 11.9 (10.1-14.3) gm/dl Hct 35.1 (30.3-42.9) % Plt Count 369 (140-440) K/mm3 Lymph # 2.3 (1.2-5.4) K/mm3 [place] # 0.5 (0.0-0.8) K/mm3 Eos # 0.2 (0.0-0.4) K/mm3 Baso # 0.0 (0.0-0.1) K/mm3 Comprehensive Metabolic Panel 02/27/19 Range/Units 06:31 Sodium 140 (137-145) mmol/L Potassium 4.0 (3.6-5.0) mmol/L Chloride 101.2 (98-107) mmol/L Carbon Dioxide 26 (22-30) mmol/L BUN 14 (7-17) mg/dL Creatinine 1.1 (0.7-1.2) mg/dL Glucose 104 H (65-100) mg/dL Calcium 9.8 (8.4-10.2) mg/dL - EKG Interpretation EKG: sinus rhythm EKG interpretations - Telemetry EKG Rhythm: Sinus Rhythm Assessment and Plan Chest pain Normal MPI 08/2018 Normal ECG Negative troponin x 1 Type II DM Systemic Hypertension Hyperlipidemia Recommendations: Proceed with coronary angio on saturday due to recurrent chest pain despite recently normal MPI
[2019-02-27] MEDS ORDERED: PERCOCET 5/325 PO PRN (21:25)
[2019-02-27] MEDS ORDERED: APRESOLINE IV PRN (21:25)
[2019-02-27] MEDS ORDERED: D50W (25GM) Syringe IV PRN (21:53)
[2019-02-27] MEDS ORDERED: HUMALOG SUB-Q SCH (22:00)
[2019-02-27] MEDS: HumaLOG SUB-Q SCH (22:46)
[2019-02-27] MEDS: PEPCID PO SCH (22:53)
[2019-02-28] MEDS: HumaLOG SUB-Q SCH ×4 (08:10→21:26)
--- NOTE | 2019-02-28 10:25 | Progress Note ---
Assessment and Plan Chest pain Normal MPI 08/2018 Normal ECG Negative troponin x 3 Type II DM Systemic Hypertension Hyperlipidemia Recommendations: Proceed with coronary angio on saturday due to recurrent chest pain despite recently normal MPI Subjective Date of service: 02/28/19 Principal diagnosis: Chest Pain Interval history: No events overnight No events on tele Objective Vital Signs Temp Pulse Resp BP BP Pulse Ox 02/28/19 07:56 97.8 F 71 18 111/75 99 02/28/19 04:22 98.0 F 71 18 119/80 99 02/27/19 23:41 98.0 F 18 119/86 02/27/19 22:00 78 02/27/19 19:13 98.5 F 84 20 117/82 98 02/27/19 16:57 81 117/86 98 02/27/19 12:43 66 02/27/19 12:37 98.3 F 66 14 124/72 99 02/27/19 11:21 73 13 121/80 100 02/27/19 11:11 76 14 121/80 98 02/27/19 11:00 64 16 105/69 98 02/27/19 10:51 66 12 121/80 99 02/27/19 10:41 72 12 121/80 100 02/27/19 10:31 69 12 121/80 98 - Physical Examination Neck: Positive: neck supple Cardiac: Positive: Reg Rate and Rhythm Lungs: Positive: Normal Exam Neuro: Positive: Grossly Intact Abdomen: Positive: Soft Extremities: Present: normal
[2019-02-28] MEDS: ZESTRIL PO SCH (10:59)
[2019-02-28] MEDS: PEPCID PO SCH ×2 (10:59→21:25)
[2019-02-28] MEDS: THALITONE PO SCH (11:54)
--- NOTE | 2019-02-28 12:18 | Progress Note ---
Assessment and Plan Chest pain Normal MPI 08/2018 Normal ECG Negative troponin x 3 Type II DM Systemic Hypertension Hyperlipidemia - negative serial CE and EKG - cont on Aspirin, statin - as needed SL NTG and iv morphin for pain - Monitor BP, add betablocker if BP tolerates -Consult cardiology for further management - plan for cardiac cath on Saturday - cardiac/consistent carb diet now, resumed home meds, SSI as needed - provide DVT Px with lovenox Subjective Date of service: 02/28/19 Principal diagnosis: Chest Pain Interval history: Patient seen and examined cont to c/o intermittent chest pain tolerating diet Objective - Exam Narrative Exam: GENERAL: well-developed and well-nourished -[place] elderly female lying on bed appeared to be in no discomfort. HEENT: Normocephalic. Atraumatic. No conjunctival congestion or icterus. Patient has moist mucous membranes. NECK: Supple. Trachea midline. CHEST/LUNGS: Clear to auscultated bilaterally, breathing nonlabored. No wheezes crackles or rhonchi. HEART/CARDIOVASCULAR: Regular in rate and rhythm. S1 and S2 positive. ABDOMEN: Abdomen is soft, nontender. Patient has normal bowel sounds. SKIN: There is no rash. Warm and dry. NEURO: No focal motor deficit. Follows command. MUSCULOSKELETAL: No joint effusion or tenderness. EXTRIMITY: No edema, no cyanosis or clubbing. PSYCH: Cooperative. - Constitutional Vitals: Vital Signs - 12hr 02/28/19 02/28/19 02/28/19 04:22 07:56 10:59 Temperature 98.0 F 97.8 F Pulse Rate 71 71 84 Respiratory 18 18 Rate Blood Pressure 119/80 111/75 115/78 O2 Sat by Pulse 99 99 Oximetry 02/28/19 11:50 Temperature 98.5 F Pulse Rate 79 Respiratory 18 Rate Blood Pressure 104/76 O2 Sat by Pulse 98 Oximetry - Labs CBC & Chem 7: 02/27/19 06:31 02/27/19 06:31 Labs: Abnormal lab results 02/27/19 02/27/19 02/28/19 Range/Units 17:01 21:03 08:01 POC Glucose 169 H 122 H 120 H (70-105)
[2019-02-28] MEDS: LOVENOX SUB-Q SCH (21:25)
[2019-03-01] MEDS: HumaLOG SUB-Q SCH ×4 (09:25→23:53)
[2019-03-01] MEDS: PEPCID PO SCH ×2 (09:31→23:04)
[2019-03-01] MEDS: HALFPRIN EC PO SCH (09:31)
[2019-03-01] MEDS: THALITONE PO SCH (09:33)
[2019-03-01] MEDS: ZESTRIL PO SCH (09:33)
--- NOTE | 2019-03-01 10:30 | Progress Note ---
Assessment and Plan Chest pain Normal MPI 08/2018 Normal ECG Negative troponin x 3 Type II DM Systemic Hypertension Hyperlipidemia Recommendations: Proceed with coronary angio on saturday due to recurrent chest pain despite recently normal MPI Subjective Date of service: 03/01/19 Principal diagnosis: Chest Pain Interval history: No events overnight Objective Vital Signs Temp Pulse Pulse Resp BP Pulse Ox 03/01/19 09:33 75 103/63 03/01/19 08:13 98.0 F 74 18 100/68 98 03/01/19 04:05 97.9 F 68 20 104/69 100 02/28/19 23:44 98.3 F 70 18 98/73 98 02/28/19 23:15 79 02/28/19 19:33 98.4 F 82 18 100/75 99 02/28/19 12:00 79 82 02/28/19 11:50 98.5 F 79 18 104/76 98 02/28/19 10:59 84 115/78 - Physical Examination Neck: Positive: neck supple Cardiac: Positive: Reg Rate and Rhythm Lungs: Positive: Normal Exam Neuro: Positive: Grossly Intact Abdomen: Positive: Soft Extremities: Present: normal
[2019-03-01] MEDS ORDERED: NACL 0.9% 500 ML 500 ML IV SCH (11:00)
--- NOTE | 2019-03-01 15:35 | Progress Note ---
Assessment and Plan Chest pain Normal MPI 08/2018 Normal ECG Negative troponin x 3 Type II DM Systemic Hypertension Hyperlipidemia - negative serial CE and EKG - cont on Aspirin, statin - as needed SL NTG and iv morphin for pain - Monitor BP, add betablocker if BP tolerates -Consult cardiology for further management - plan for cardiac cath on Saturday - cardiac/consistent carb diet now, resumed home meds, SSI as needed - provide DVT Px with lovenox Subjective Date of service: 03/01/19 Principal diagnosis: Chest Pain Interval history: Patient seen and examined cont to c/o intermittent chest pain tolerating diet Objective - Exam Narrative Exam: GENERAL: well-developed and well-nourished -Cypriot elderly female lying on bed appeared to be in no discomfort. HEENT: Normocephalic. Atraumatic. No conjunctival congestion or icterus. Patient has moist mucous membranes. NECK: Supple. Trachea midline. CHEST/LUNGS: Clear to auscultated bilaterally, breathing nonlabored. No wheezes crackles or rhonchi. HEART/CARDIOVASCULAR: Regular in rate and rhythm. S1 and S2 positive. ABDOMEN: Abdomen is soft, nontender. Patient has normal bowel sounds. SKIN: There is no rash. Warm and dry. NEURO: No focal motor deficit. Follows command. MUSCULOSKELETAL: No joint effusion or tenderness. EXTRIMITY: No edema, no cyanosis or clubbing. PSYCH: Cooperative. - Constitutional Vitals: Vital Signs - 12hr 03/01/19 03/01/19 03/01/19 04:05 08:13 09:33 Temperature 97.9 F 98.0 F Pulse Rate 68 74 75 Pulse Rate [ Apical] Pulse Rate [ Right Radial] Respiratory 20 18 Rate Blood Pressure 104/69 100/68 103/63 O2 Sat by Pulse 100 98 Oximetry 03/01/19 03/01/19 03/01/19 10:00 11:28 12:00 Temperature 98.3 F Pulse Rate 66 78 72 Pulse Rate [ 74 Apical] Pulse Rate [ 74 Right Radial] Respiratory 18 Rate Blood Pressure 104/65 O2 Sat by Pulse 99 Oximetry - Labs CBC & Chem 7: 02/27/19 06:31 02/27/19 06:31 Labs: Abnormal lab results 02/28/19 02/28/19 Range/Units 16:36 21:04 POC Glucose 162 H 211 H (70-105)
[2019-03-01] MEDS: LOVENOX SUB-Q SCH (23:04)
[2019-03-02 05:42] LABS: INR 1.04 (0.87-1.13)
[2019-03-02] MEDS ORDERED: CALAN ONE (09:07)
[2019-03-02] MEDS ORDERED: XYLOCAINE 2% INFILTRATI ONE (09:07)
[2019-03-02] MEDS ORDERED: HEPARIN 10,000 UNITS/10 ML ONE (09:07)
[2019-03-02] MEDS ORDERED: HEPARIN/NS 5000 UNIT/500ML(CATH LAB) 1,000 ML IR ONE (09:07)
[2019-03-02] MEDS ORDERED: NITROGLYCERIN SYRINGE 3 ML ONE (09:08)
[2019-03-02] MEDS ORDERED: VERSED ONE (09:08)
[2019-03-02] MEDS ORDERED: SUBLIMAZE ONE (09:10)
--- NOTE | 2019-03-02 10:12 | Cardiac Catherization Report ---
CARDIAC CATHETERIZATION REPORT REASON FOR PROCEDURE: Chest pain. PROCEDURES: 1. Left heart catheterization. 2. Selective left and right coronary angiography. 3. Left ventricle angiography. 4. Sedation time start 09:38, end 09:53. DESCRIPTION OF PROCEDURE: The patient was prepped and draped in a sterile fashion after informed consent. The right radial cath site was prepped and draped after a negative Too's test. The right radial artery was entered using Seldinger technique followed by placement of a 6-[place] hydrophilic sheath. Routine radial cocktail was administered via the sheath. Left coronary angiography was performed using a #3.5 left Shane, a #4 right Shane was used for right coronary angiography. The pigtail catheter was used for left ventricular angiography. The catheters were removed, sheath removed, and hemostasis achieved using a TR band. The patient was returned to the postprocedure unit in stable condition. There were no complications. FINDINGS: HEMODYNAMICS: Left ventricular end-diastolic pressure was 12. Ascending aortic pressure was 128/55. There was no significant pressure gradient on pullback across the aortic valve. CORONARY ANGIOGRAPHY: Left main coronary artery was free of significant disease. The proximal LAD contained mild luminal irregularities, associated with mild to moderate calcification. Otherwise, the LAD and diagonal branches were angiographically normal. The circumflex artery was a large dominant system. The first obtuse marginal branch was a medium to large caliber vessel, that contained mild disease in its proximal segment, otherwise the rest of the circumflex system was angiographically normal. The right coronary artery was small, nondominant, and free of significant disease. There was well preserved left ventricular systolic function, ejection fraction 55-60%. CONCLUSION: 1. Mild luminal irregularities of the proximal LAD and the anterolateral obtuse marginal branch, otherwise angiographically normal coronary arteries. 2. Left circumflex dominant system. 3. Well preserved left ventricular systolic function, ejection fraction of 55%. RECOMMENDATION: Risk factor modification and medical therapy. JOB# [id number] POPEYE/LEONELA
--- NOTE | 2019-03-02 10:31 | Event Note ---
Date: 03/02/19 Cardiac cath completed via R radial approach. No complications. Findings: No significant obstructive CAD. LVEF 55%. OK for cardiac discharge after 4 hour post cath hydration. Hold Metformin for 48 hrs post cath. Follow up 1 week for post cath check.
[2019-03-02] MEDS ORDERED: NACL 0.9% 1000 ML 1,000 ML IV SCH (11:00)
[2019-03-02] MEDS: HumaLOG SUB-Q SCH ×3 (11:05→18:15)
[2019-03-02] MEDS: PEPCID PO SCH (11:29)
[2019-03-02] MEDS: HALFPRIN EC PO SCH (11:29)
[2019-03-02] MEDS: THALITONE PO SCH (11:58)
[2019-03-02] MEDS: ZESTRIL PO SCH (11:58)
--- NOTE | 2019-03-02 14:00 | Discharge Summary ---
Providers - Providers Date of Admission: 03/02/19 10:08 Date of discharge: 03/02/19 Attending physician: MALINDA RIVAS 02/27/19 10:47 Consult to Physician [CONS] Routine Comment: OLIVER Robledo/DR DAVIS TO ADV OF CONSULT @[id number] Consulting Provider: SUSANA BEACH Physician Instructions: Reason For Exam: chest pain 03/02/19 10:32 Consult to Cardiac Rehabilitation [CONS] Routine Reason For Exam: Cardiac Rehab Evaluation Primary care physician: KIMBERLEY CARNES Hospitalization Condition: Stable Hospital course: Discharge diagnosis: Chest pain, likley GERD Normal MPI 08/2018 Normal ECG Negative troponin x 3 Type II DM Systemic Hypertension Hyperlipidemia - negative serial CE and EKG - cont on Aspirin, statin - as needed SL NTG and iv morphin for pain - Monitor BP, add betablocker if BP tolerates -Consult cardiology for further management -s/p cardiac cath showed normal coronaries - cardiac/consistent carb diet now, resumed home meds, SSI as needed - provide DVT Px with lovenox Disposition: TO HOME OR SELFCARE Time spent for discharge: 34 minutes Core Measure Documentation - Palliative Care Palliative Care/ Comfort Measures: Not Applicable - Core Measures Any of the following diagnoses?: none Exam - Physical Exam Narrative exam: GENERAL: well-developed and well-nourished -[place] elderly female lying on bed appeared to be in no discomfort. HEENT: Normocephalic. Atraumatic. No conjunctival congestion or icterus. Patient has moist mucous membranes. NECK: Supple. Trachea midline. CHEST/LUNGS: Clear to auscultated bilaterally, breathing nonlabored. No wheezes crackles or rhonchi. HEART/CARDIOVASCULAR: Regular in rate and rhythm. S1 and S2 positive. ABDOMEN: Abdomen is soft, nontender. Patient has normal bowel sounds. SKIN: There is no rash. Warm and dry. NEURO: No focal motor deficit. Follows command. MUSCULOSKELETAL: No joint effusion or tenderness. EXTRIMITY: No edema, no cyanosis or clubbing. PSYCH: Cooperative. - Constitutional Vitals: Temp Pulse Resp BP Pulse Ox 98.6 F 80 14 107/68 99 03/02/19 11:44 03/02/19 13:29 03/02/19 11:44 03/02/19 11:58 03/02/19 11:44 Plan Activity: advance as tolerated Weight Bearing Status: Weight Bear as Tolerated Diet: low fat, low salt Follow up with: KEYLA SULLIVAN MD [Staff Physician] - 3-5 Days Prescriptions: Pantoprazole [Protonix] 40 mg PO QDAY #30 tablet
[2019-03-02 17:37] VITALS: BP 91/60
== END 2019-03-02 16:00 | disposition home or self-care (01) | DRG 392 ==
LOC: ED 05:41 → 4A 08:39 → OBSVTOIN 03-02 10:08
PROVIDERS: ADMIT Internal Medicine; ATTEND Internal Medicine
PROC: 4A023N7 Measurement of Cardiac Sampling and Pressure, Left Heart, Percutaneous Approach (ICD-10-PCS; principal; 2019-03-02)
PROC: B2111ZZ Fluoroscopy of Multiple Coronary Arteries using Low Osmolar Contrast (ICD-10-PCS; 2019-03-02)
PROC: B2151ZZ Fluoroscopy of Left Heart using Low Osmolar Contrast (ICD-10-PCS; 2019-03-02)
DX: K21.9 Gastro-esophageal reflux disease without esophagitis (principal); I10 Essential (primary) hypertension; E11.9 Type 2 diabetes mellitus without complications; E78.00 Pure hypercholesterolemia, unspecified; Z88.0 Allergy status to penicillin; Z88.1 Allergy status to other antibiotic agents; Z79.84 Long term (current) use of oral hypoglycemic drugs
CPT/HCPCS: 36415; 71045; 80048; 82962; 84484; 85025; 85610; 85730; 93005; 93010; 93458; G0378; A9270-GY; C1894; J1644; J1650; J1815; J2250; J3010; Q9967

== ENCOUNTER 2020-02-10 03:14 | Observation (INO) | payer MEDICARE ==
[2020-02-10] MEDS ORDERED: LORazepam 2 MG/ML VIAL ONE (03:19)
[2020-02-10] MEDS ORDERED: LORazepam 2 MG/ML VIAL IV ONE (03:20)
[2020-02-10] MEDS ORDERED: levETIRAcetam 1000 MG/NS 0.75% 1,000 MG/100 ML BAG IV ONE (03:22)
--- NOTE | 2020-02-10 03:45 | Cat Scan Report ---
CT HEAD/BRAIN WO CON INDICATION / CLINICAL INFORMATION: Seizures and Stroke-like symptoms. Hx of previous stroke(s). TECHNIQUE: All CT scans at this location are performed using CT dose reduction for ALARA by means of automated e xposure control. COMPARISON: 08/31/18. FINDINGS: The ventricular system is normal in size and configuration. Patchy small vessel ischemic changes in t he periventricular white matter and left gangliocapsular region are stable. No new focal lesion is se en. There is no evidence of mass effect or intracranial hemorrhage. No evidence of acute major vessel occlusion is seen. The visualized paranasal sinuses and mastoid air cells are clear. The calvarium is intact. IMPRESSION: No acute abnormality or significant change. CODE STROKE: Time of Communication (AUTOMOTIVE SHOP FOREMAN/CDT): 2:38 AM Licensed Practitioner Receiving Report: Dr. Pyle Signer Name: Jones Taylor MD Signed: 02/10/2020 3:41 AM Workstation Name: [email or web address]
--- NOTE | 2020-02-10 03:59 | Consultation ---
History of Present Illness Consult date: 02/10/20 History of present illness: [facility] Date of Service: 02/10/2020 03:03:51 Impression: Rule Out Acute Ischemic Stroke Comments/Sign-Out: altered mental status and difficulty speaking with clear seizure like activity with whole body stiffening and shaking, along with right gaze deviation. Presentation is more consistent with seizure rather than stroke. Currently, she has a nonfocal exam (moves all extremities equally to pain) but given exam was difficult to obtain (and could not assess for aphasia given mental status) since she was post-ictal, cannot rule out stroke. Mechanism of Stroke: Not Clear Metrics: Last Known Well: 02/09/2020 23:00:00 [facility] Notification Time: 02/10/2020 03:02:56 Arrival Time: 02/10/2020 03:13:00 Stamp Time: 02/10/2020 03:03:51 Time First Login Attempt: 02/10/2020 03:11:37 Video Start Time: 02/10/2020 03:11:37 Symptoms: altered mental status NIHSS Start Assessment Time: 02/10/2020 03:32:00 Patient is not a candidate for tPA. Patient was not deemed candidate for tPA thrombolytics because of Last Well Known Above 4.5 Hours. Video End Time: 02/10/2020 03:41:43 CT head showed no acute hemorrhage or acute core infarct. Lower Likelihood of Large Vessel Occlusion but Following Stat Studies are Recommended CTA Head and Neck. Reviewed, No Indication of Large Vessel Occlusive Thrombus, Patient is not an JAMES Candidate. ED Physician notified of diagnostic impression and management plan on 02/10/2020 03:45:57 Our recommendations are outlined below. Recommendations: Activate Stroke Protocol Admission/Order Set Stroke/Telemetry Floor Neuro Checks Bedside Swallow Eval DVT Prophylaxis IV Fluids, Normal Saline Head of Bed 30 Degrees Euglycemia and Avoid Hyperthermia (PRN Acetaminophen) Antiplatelet Therapy Recommended Ativan 2 mg IV prn seizure > 5 min Keppra 1000 mg IV x1 STAT- already ordered Begin Keppra 500 mg twice daily- begin on PM of 02/10/2020 Seizure precautions Routine Consultation with Inhouse Neurology for Follow up Care Sign Out: Discussed with Emergency Department Provider History of Present Illness: Patient is a 69 year old Female. Patient was brought by EMS for symptoms of altered mental status 69 year old woman with history of stroke 1 year ago (which presented with aphasia but improved), HTN, and DM, who presents with altered mental status. Per her son, Jesus, she was last seen normal between 11 pm and 12 AM. She walked into his room and was staring straight ahead. She was not responding to him when he asked questions. Shortly after she arrived to CT scan (shortly after I arrived on screen), she began having whole body stiffening and shaking with right gaze deviation. It lasted for less than 2 minutes. She was post-ictal afterwards with altered mentation and snoring/agonal respirations. She bit her tongue during the seizure. She had to be stabilized before CT and NIHSS Examination: 1A: Level of Consciousness - Movements to Pain + 2 1B: Ask Month and Age - Could Not Answer Either Question Correctly + 2 1C: Blink Eyes & Squeeze Hands - Performs 0 Tasks + 2 2: Test Horizontal Extraocular Movements - Normal + 0 3: Test Visual Marvin - No Visual Loss + 0 4: Test Facial Palsy (Use Grimace if Obtunded) - Normal symmetry + 0 5A: Test Left Arm Motor Drift - Some Effort Against Prescott + 2 5B: Test Right Arm Motor Drift - Some Effort Against Prescott + 2 6A: Test Left Leg Motor Drift - Some Effort Against Prescott + 2 6B: Test Right Leg Motor Drift - Some Effort Against Prescott + 2 7: Test Limb Ataxia (FNF/Heel-Whittaker) - No Ataxia + 0 8: Test Sensation - Normal; No sensory loss + 0 9: Test Language/Aphasia - Normal; No aphasia + 0 10: Test Dysarthria - Normal + 0 11: Test Extinction/Inattention - No abnormality + 0 NIHSS Score: 14 Patient/Family was informed the Neurology Consult would happen via TeleHealth consult by way of interactive audio and video telecommunications and consented to receiving care in this manner. Due to the immediate potential for life-threatening deterioration due to underlying acute neurologic illness, I spent 35 minutes providing critical care. This time includes time for face to face visit via telemedicine, review of medical records, imaging studies and discussion of findings with providers, the patient and/or family. Dr Audra Braun [facility] Case [id number] Medications and Allergies Allergies Allergy/AdvReac Type Severity Reaction Status Date / Time levofloxacin [From Levaquin] Allergy Swelling Verified 02/27/19 05:59 Penicillins Allergy Nausea Verified 02/27/19 05:59 Home Medications Medication Instructions Recorded Confirmed Last Taken Type AtorvaSTATin 40 mg PO DAILY 02/27/19 02/27/19 Unknown History Chlorthalidone 25 mg PO DAILY 02/27/19 02/27/19 Unknown History HumaLOG 12 units SUB-Q BID 02/27/19 02/27/19 Unknown History Lantus VIAL 50 units SUB-Q HS 02/27/19 02/27/19 Unknown History Lisinopril 10 mg PO QDAY 02/27/19 02/27/19 Unknown History metFORMIN 500 mg PO DAILY 02/27/19 02/27/19 Unknown History Pantoprazole [Protonix] 40 mg PO QDAY #30 tablet 03/02/19 Unknown Rx Results - Laboratory Findings CBC and BMP: 02/10/20 04:15 02/10/20 04:15
[2020-02-10 04:40] LABS: Basophils % (Auto) 0.5 % (0.0-1.8); Eosinophils # (Auto) 0.2 K/mm3 (0.0-0.4); Eosinophils % (Auto) 3.1 % (0.0-4.3); Hematocrit 32.5 % (30.3-42.9); Hemoglobin 10.7 gm/dl (10.1-14.3); Mean Corpuscular HGB Conc 33 % (30-34); Mean Corpuscular Volume 93 fl (79-97); Monocytes # (Auto) 0.4 K/mm3 (0.0-0.8); Platelet Count 357 K/mm3 (140-440); Red Blood Count 3.51 M/mm3 (3.65-5.03)
--- NOTE | 2020-02-10 04:43 | Cat Scan Report ---
CT angio neck INDICATION / CLINICAL INFORMATION: 69 years Female; CODE STROKE PROTOCOL!! Omnipaque 350 / 100ml's was used for this exam.. TECHNIQUE: Thin cut axial images obtained through the head during IV bolus contrast administration. S agittal, coronal, and 3 plane MIP reconstructions performed by the technologist. NASCET type criteria used evaluate stenoses. All CT scans at this location are performed using CT dose reduction for ALAR A by means of automated exposure control. COMPARISON: None available. FINDINGS: CAROTID ARTERIES: There is irregular calcified plaque involving proximal right ICA without significan t stenosis by NASCET criteria. However, there does appear to be component of ulceration along the ant erior aspect at the distal right carotid bulb. There is no significant stenosis involving left carotid bifurcation or cervical left ICA. The proxima l left common carotid artery is obscured by the dense contrast within the adjacent venous structures. However, there is no clear evidence of significant stenosis. VERTEBRAL ARTERIES: The proximal left vertebral artery is also obscured by the beam hardening from th e dense venous contrast. However, there is no significant narrowing of the visualized segments at. 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 ARCH: There is no significant focal stenosis involving the arch vessels. ADDITIONAL FINDINGS: Remainder of the surrounding soft tissues are grossly normal. IMPRESSION: There is mild ulcerated plaque involving proximal right ICA without significant stenosis. 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 Signer Name: Arnel Hart MD Signed: 02/10/2020 4:38 AM Workstation Name: [id number]
[2020-02-10 04:49] LABS: Calcium 9.3 mg/dL (8.4-10.2)
[2020-02-10 04:50] LABS: INR 0.93 (0.87-1.13)
[2020-02-10 04:51] LABS: Partial Thromboplastin Time 26.4 Sec. (24.2-36.6); Thrombin Time 18.7 Sec. (15.1-19.6)
--- NOTE | 2020-02-10 04:51 | Cat Scan Report ---
CT angio head INDICATION / CLINICAL INFORMATION: 69 years Female; CODE STROKE PROTOCOL!! Omnipaque 350 / 100ml's was used for this exam.. TECHNIQUE: Thin cut axial images obtained through the head during IV bolus contrast administration. S agittal, coronal, and 3 plane MIP reconstructions performed by the technologist. NASCET type criteria used evaluate stenoses. Automated exposure control utilized for radiation reduction purposes. COMPARISON: None available. FINDINGS: INTERNAL CAROTID ARTERIES: There is extensive calcification involving distal internal carotid arterie s without significant focal narrowing by NASCET criteria. VERTEBROBASILAR SYSTEM: There is developmental hypoplasia of the distal vertebral and basilar arterie s. There is associated origin of the posterior cerebral arteries bilaterally. CEREBRAL ARTERIES: The proximal cerebral arteries and adjacent of branches demonstrate appropriate ca liber without significant focal stenosis at. ANEURYSM: None identified. ADDITIONAL FINDINGS: Remainder of the surrounding soft tissues are grossly normal. IMPRESSION: Code stroke CTA of the head reveals no evidence of large vessel occlusion in this patient with report ed history of seizures There is developmental hypoplasia of the vertebrobasilar system with origin of the posterior ce rebral arteries bilaterally. There is extensive atherosclerotic calcification involving distal internal carotid arteries without s ignificant focal stenosis by NASCET criteria. Signer Name: Arnel Hart MD Signed: 02/10/2020 4:47 AM Workstation Name: [id number]
[2020-02-10] MEDS ORDERED: SODIUM CHLORIDE 0.9% 1000 ML 1,000 ML IV ONE (04:52)
--- NOTE | 2020-02-10 04:55 | Emergency Department Report ---
HPI - General Chief Complaint: Neuro Symptoms/Deficit Time Seen by Provider: 02/10/20 03:59 - HPI HPI: Room 1 The patient is a 69-year-old female present with a chief complaint of altered mental status. The patient reportedly was witnessed by 1 of her sons coming into the room appearing dazed and staring off into space. They then state the patient fell on the bed. EMS was called and patient was transported to the ED. Shortly after arrival to the ED the patient had a generalized tonic-clonic seizure and has been postictal since. ED Past Medical Hx - Past Medical History Hx Hypertension: Yes Hx Diabetes: Yes Hx Renal Disease: Yes Additional medical history: high cholesterol - Surgical History Past Surgical History?: No - Family History Family history: no significant - Social History Smoking Status: Unknown if ever smoked Substance Use Type: None - Medications Home Medications: Home Medications Medication Instructions Recorded Confirmed Last Taken Type AtorvaSTATin 40 mg PO DAILY 02/27/19 02/27/19 Unknown History Chlorthalidone 25 mg PO DAILY 02/27/19 02/27/19 Unknown History HumaLOG 12 units SUB-Q BID 02/27/19 02/27/19 Unknown History Lantus VIAL 50 units SUB-Q HS 02/27/19 02/27/19 Unknown History Lisinopril 10 mg PO QDAY 02/27/19 02/27/19 Unknown History metFORMIN 500 mg PO DAILY 02/27/19 02/27/19 Unknown History Pantoprazole [Protonix] 40 mg PO QDAY #30 tablet 03/02/19 Unknown Rx ED Review of Systems ROS: Stated complaint: STROKE Other details as noted in HPI Comment: Unobtainable due to pts medical conditions Physical Exam - Physical Exam Vital Signs: Vital Signs 02/10/20 03:15 Temperature 98.1 F Pulse Rate 126 H Respiratory 30 H Rate Blood Pressure 135/92 [Left] O2 Sat by Pulse 98 Oximetry Physical Exam: GENERAL: The patient is well-developed well-nourished female lying on stretcher in postictal state. [] HEENT: Normocephalic. Atraumatic. Pupils 3 mm bilaterally. Patient has moist mucous membranes. NECK: Supple. Trachea midline CHEST/LUNGS: Clear to auscultation. There is no respiratory distress noted. HEART/CARDIOVASCULAR: Regular. There is tachycardia. There is no gallop rub or murmur. ABDOMEN: Abdomen is soft, nontender. Patient has normal bowel sounds. There is no abdominal distention. SKIN: There is no rash. There is no edema. There is no diaphoresis. NEURO: The patient is postictal and does not cooperate with neurologic exam. Patient raises her head when her eyelids are opened manually but she does not speak MUSCULOSKELETAL: There is no evidence of acute injury. ED Course Vital Signs 02/10/20 03:15 Temperature 98.1 F Pulse Rate 126 H Respiratory 30 H Rate Blood Pressure 135/92 [Left] O2 Sat by Pulse 98 Oximetry ED Medical Decision Making - Lab Data Result diagrams: 02/10/20 04:15 02/10/20 04:15 Laboratory Tests 02/10/20 02/10/20 02/10/20 04:15 04:15 04:15 WBC 7.2 RBC 3.51 L Hgb 10.7 Hct 32.5 MCV 93 MCH 31 MCHC 33 RDW 13.0 L Plt Count 357 Lymph % (Auto) 27.0 [place] % (Auto) 5.0 Eos % (Auto) 3.1 Baso % (Auto) 0.5 Lymph # 2.0 [place] # 0.4 Eos # 0.2 Baso # 0.0 Seg Neutrophils % 64.4 Seg Neutrophils # 4.6 PT 12.3 INR 0.93 APTT 26.4 Thrombin Time 18.7 Sodium 137 Potassium 3.5 L Chloride 98.8 Carbon Dioxide 18 L Anion Gap 24 BUN 11 Creatinine 1.2 Estimated GFR 54 BUN/Creatinine Ratio 9 Glucose 195 H Calcium 9.3 Magnesium 02/10/20 04:15 WBC RBC Hgb Hct MCV MCH MCHC RDW Plt Count Lymph % (Auto) [place] % (Auto) Eos % (Auto) Baso % (Auto) Lymph # [place] # Eos # Baso # Seg Neutrophils % Seg Neutrophils # PT INR APTT Thrombin Time Sodium Potassium Chloride Carbon Dioxide Anion Gap BUN Creatinine Estimated GFR BUN/Creatinine Ratio Glucose Calcium Magnesium 1.40 L - EKG Data -: EKG Interpreted by Me EKG shows normal: sinus rhythm Rate: tachycardia (118 bpm) - EKG Data When compared to previous EKG there are: previous EKG unavailable Interpretation: other (No ischemic changes seen) - Radiology Data Radiology results: report reviewed (CT head, CTA brain, CTA neck), image reviewed (CT brain, CTA head, CTA neck) [address] [address] Cat Scan Report Signed Patient: AD SHAH MR#: [id number] : 1950 Acct:[id number] Age/Sex: 69 / F ADM Date: 02/10/20 Loc: ED Attending Dr: Ordering Physician: ROMELIA MILTON MD Date of Service: 02/10/20 Procedure(s): CT head/brain wo con Accession Number(s): [id number] cc: ROMELIA MILTON MD CT HEAD/BRAIN WO CON INDICATION / CLINICAL INFORMATION: Seizures and Stroke-like symptoms. Hx of previous stroke(s). TECHNIQUE: All CT scans at this location are performed using CT dose reduction for ALARA by means of automated exposure control. COMPARISON: 08/31/18. FINDINGS: The ventricular system is normal in size and configuration. Patchy small vessel ischemic changes in the periventricular white matter and left gangliocapsular region are stable. No new focal lesion is seen. There is no evidence of mass effect or intracranial hemorrhage. No evidence of acute major vessel occlusion is seen. The visualized paranasal sinuses and mastoid air cells are clear. The calvarium is intact. IMPRESSION: No acute abnormality or significant change. CODE STROKE: Time of Communication (SHEET METAL LAYOUT MECHANIC/CDT): 2:38 AM Licensed Practitioner Re ceiving Report: Dr. Milton Signer Name: Jones Taylor MD Signed: 02/10/2020 3:41 AM Workstation Name: [id number] Transcribed By: RT Dictated By: Jones Taylor MD Electronically Authenticated By: Jones Taylor MD Signed Date/Time: 02/10/20 0341 DD/ 0335 TD/TT: [address] [address] Cat Scan Report Signed Patient: AD SHAH MR#: [id number] : 1950 Acct:[id number] Age/Sex: 69 / F ADM Date: 02/10/20 Loc: ED Attending Dr: Ordering Physician: YENNY COPELAND Date of Service: 02/10/20 Procedure(s): CT angio neck Accession Number(s): [id number] cc: YENNY COPELAND CT angio neck INDICATION / CLINICAL INFORMATION: 69 years Female; CODE STROKE PROTOCOL!! Omnipaque 350 / 100ml's was used for this exam.. TECHNIQUE: Thin cut axial images obtained through the head during IV bolus contrast administration. Sagittal, coronal, and 3 plane MIP reconstructions performed by the technologist. NASCET type criteria used evaluate stenoses. All CT scans at this location are performed using CT dose reduction for ALARA by means of automated exposure control. COMPARISON: None available. FINDINGS: CAROTID ARTERIES: There is irregular calcified plaque involving proximal right ICA without significant stenosis by NASCET criteria. However, there does appear to be component of ulceration along the anterior aspect at the distal right carotid bulb. There is no significant stenosis involving left carotid bifurcation or cervical left ICA. The proximal left common carotid artery is obscured by the dense contrast within the adjacent venous structures. However, there is no clear evidence of significant stenosis. VERTEBRAL ARTERIES: The proximal left vertebral artery is also obscured by the beam hardening from the dense venous contrast. However, there is no significant narrowing of the visualized segments at. 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 ARCH: There is no significant focal stenosis involving the arch vessels. ADDITIONAL FINDINGS: Remainder of the surrounding soft tissues are grossly normal. IMPRESSION: There is mild ulcerated plaque involving proximal right ICA without significant stenosis. 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 Signer Name: Arnel Hart MD Signed: 02/10/2020 4:38 AM Workstation Name: [id number] Transcribed By: MR Dictated By: Arnel Hart MD Electronically Authenticated By: Arnel Hart MD Signed Date/Time: 02/10/20437 DD/ 9 TD/TT: CT angio head INDICATION / CLINICAL INFORMATION: 69 years Female; CODE STROKE PROTOCOL!! Omnipaque 350 / 100ml's was used for this exam.. TECHNIQUE: Thin cut axial images obtained through the head during IV bolus contrast administration. Sagittal, coronal, and 3 plane MIP reconstructions performed by the [employer]. NASCET type criteria used evaluate stenoses. Automated exposure control utilized for radiation reduction purposes. COMPARISON: None available. FINDINGS: INTERNAL CAROTID ARTERIES: There is extensive calcification involving distal internal carotid arteries without significant focal narrowing by NASCET criteria. VERTEBROBASILAR SYSTEM: There is developmental hypoplasia of the distal vertebral and basilar arteries. There is associated origin of the posterior cerebral arteries bilaterally. CEREBRAL ARTERIES: The proximal cerebral arteries and adjacent of branches demonstrate appropriate caliber without significant focal stenosis at. ANEURYSM: None identified. ADDITIONAL FINDINGS: Remainder of the surrounding soft tissues are grossly normal. 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 There is extensive atherosclerotic calcification involving distal internal carotid arteries without significant focal stenosis by NASCET criteria. Signer Name: Arnel Hart MD Signed: 02/10/2020 4:47 AM Workstation Name: [id number] Transcribed By: MR Dictated By: Arnel Hart MD Electronically Authenticated By: Arnel Hart MD Signed Date/Time: 02/10/20446 DD/ 0438 TD/TT: - Differential Diagnosis Seizure, intracranial mass, intracranial hemorrhage, altered mental status, Critical care attestation.: If time is entered above; I have spent that time in minutes in the direct care of this critically ill patient, excluding procedure time. ED Disposition Clinical Impression: Altered mental status, Seizure Disposition: - OP ADMIT IP TO THIS HOSP Is pt being admited?: Yes Does the pt Need Aspirin: Yes Condition: Fair Referrals: PRIMARY CARE, [Primary Care Provider] - 3-5 Days Time of Disposition: 05:26 (Hospitalist paged (Dr Dempsey))
[2020-02-10] MEDS ORDERED: ASPIRIN 300 MG RECT SUPP PR ONE (04:57)
[2020-02-10] MEDS ORDERED: MAGNESIUM SULFATE 2 GM/50 ML BAG IV ONE (05:47)
[2020-02-10] MEDS ORDERED: ONDANSETRON 4 MG/2 ML INJ ONE (06:21)
--- NOTE | 2020-02-10 08:39 | History and Physical Report ---
History of Present Illness Date of examination: 02/10/20 Date of admission: 02/10/20 06:30 History of present illness: The patient is a 69-year-old female present with a chief complaint of altered mental status. The patient reportedly was witnessed by 1 of her sons coming into the room appearing dazed and staring off into space. They then state the patient fell on the bed. EMS was called and patient was transported to the ED. Shortly after arrival to the ED the patient had a generalized tonic-clonic seizure and has been postictal since. Past Medical Hx - Past Medical History Hx Hypertension: Yes Hx Diabetes: Yes Hx Renal Disease: Yes Additional medical history: high cholesterol - Surgical History Past Surgical History?: No - Family History Family history: no significant - Social History Smoking Status: Unknown if ever smoked Substance Use Type: None Review of System: Unable to obtain due to altered mental status Medications and Allergies Allergies Allergy/AdvReac Type Severity Reaction Status Date / Time levofloxacin [From Levaquin] Allergy Swelling Verified 02/27/19 05:59 Penicillins Allergy Nausea Verified 02/27/19 05:59 Home Medications Medication Instructions Recorded Confirmed Last Taken Type AtorvaSTATin 40 mg PO DAILY 02/27/19 02/11/20 Unknown History Chlorthalidone 25 mg PO DAILY 02/27/19 02/11/20 Unknown History HumaLOG 12 units SUB-Q BID 02/27/19 02/11/20 Unknown History Lantus VIAL 50 units SUB-Q HS 02/27/19 02/11/20 Unknown History Lisinopril 10 mg PO QDAY 02/27/19 02/11/20 Unknown History metFORMIN 500 mg PO DAILY 02/27/19 02/11/20 Unknown History Pantoprazole [Protonix] 40 mg PO QDAY #30 tablet 03/02/19 02/11/20 Unknown Rx Exam - Physical Exam Narrative exam: GENERAL: well-developed and well-nourished lying on bed appeared to be in no discomfort. HEENT: Normocephalic. Atraumatic. No conjunctival congestion or icterus. Patient has moist mucous membranes. NECK: Supple. Trachea midline. CHEST/LUNGS: Clear to auscultated bilaterally, breathing nonlabored. No wheezes crackles or rhonchi. HEART/CARDIOVASCULAR: Regular in rate and rhythm. S1 and S2 positive. ABDOMEN: Abdomen is soft, nontender. Patient has normal bowel sounds. SKIN: There is no rash. Warm and dry. NEURO: No focal motor deficit. Follows command. MUSCULOSKELETAL: No joint effusion or tenderness. EXTRIMITY: No edema, no cyanosis or clubbing. PSYCH: Cooperative. - Constitutional Vitals: Temp Pulse Resp BP Pulse Ox 98.1 F 77 20 122/81 98 02/10/20 03:15 02/10/20 07:30 02/10/20 07:37 02/10/20 07:30 02/10/20 07:37 Results - Labs CBC & Chem 7: 02/10/20 04:15 02/11/20 05:51 Labs: Abnormal lab results 02/10/20 02/10/20 02/10/20 Range/Units 04:15 04:15 04:15 RBC 3.51 L (3.65-5.03) M/mm3 RDW 13.0 L (13.2-15.2) % Potassium 3.5 L (3.6-5.0) mmol/L Carbon Dioxide 18 L (22-30) mmol/L Glucose 195 H (65-100) mg/dL Magnesium 1.40 L (1.7-2.3) mg/dL Assessment and Plan Acute encephalopathy, likely due to postictal state Acute tonic-clonic seizure Hypokalemia Hypomagnesemia Diabetes mellitus type 2 Hypertension Hyperlipidemia DVT prophylaxis
[2020-02-10] MEDS ORDERED: LORazepam 2 MG/ML VIAL IV PRN (08:40)
[2020-02-10] MEDS ORDERED: SODIUM CHLORIDE 0.9% 1000 ML 1,000 ML IV SCH (08:45)
[2020-02-10] MEDS: LISINOPRIL 10 MG TAB PO SCH (10:33)
[2020-02-10] MEDS: PANTOPRAZOLE 40 MG TAB PO SCH (10:33)
[2020-02-10] MEDS: ASPIRIN EC 325 MG TAB PO SCH (10:33)
[2020-02-10] MEDS: levETIRAcetam 750 MG in DEXTROSE 5% IN WATER 100 ML IV SCH ×2 (10:38→21:46)
--- NOTE | 2020-02-10 13:43 | Consultation ---
History of Present Illness Consult date: 02/10/20 Reason for Consult: Seizure Chief complaint: Seizure History of present illness: Patient is a 69 y/o woman w/ a h/o CVA w/ no residual deficits, HTN, DM, HLD. Patient presented today after she was noted to be confused at home as she was staring off. She then was noted to fall on her bed. Patient was then brought to [facility] for further evaluation. While being evaluated by physicians in the ER, patient was noted to have whole body stiffening/shaling, and right gaze deviation. She also bit her tongue during this episode. No known history of seizures in the past. Past History Past Medical History: other (h/o CVA w/ no residual deficits, HTN, DM, HLD) Social history: lives with family Family history: no significant family history Medications and Allergies Allergies Allergy/AdvReac Type Severity Reaction Status Date / Time levofloxacin [From Levaquin] Allergy Swelling Verified 02/27/19 05:59 Penicillins Allergy Nausea Verified 02/27/19 05:59 Home Medications Medication Instructions Recorded Confirmed Last Taken Type AtorvaSTATin 40 mg PO DAILY 02/27/19 02/27/19 Unknown History Chlorthalidone 25 mg PO DAILY 02/27/19 02/27/19 Unknown History HumaLOG 12 units SUB-Q BID 02/27/19 02/27/19 Unknown History Lantus VIAL 50 units SUB-Q HS 02/27/19 02/27/19 Unknown History Lisinopril 10 mg PO QDAY 02/27/19 02/27/19 Unknown History metFORMIN 500 mg PO DAILY 02/27/19 02/27/19 Unknown History Pantoprazole [Protonix] 40 mg PO QDAY #30 tablet 03/02/19 Unknown Rx Active Meds: Active Medications Aspirin (Ecotrin) 325 mg PO QDAY [facility] Last Admin: 02/10/20 10:33 Dose: 325 mg Documented by: Atorvastatin Calcium (Lipitor) 40 mg PO DAILY [facility] Last Admin: 02/10/20 10:32 Dose: 40 mg Documented by: Enoxaparin Sodium (Enoxaparin) 40 mg SUB-Q QDAY@2200 TAN Levetiracetam 750 mg/ Dextrose 107.5 mls @ 400 mls/hr IV Q12HR [facility] Last Admin: 02/10/20 10:38 Dose: 400 mls/hr Documented by: Sodium Chloride (Nacl 0.9% 1000 Ml) 1,000 mls @ 100 mls/hr IV DIRECT [facility] Last Admin: 02/10/20 10:32 Dose: 100 mls/hr Documented by: Lisinopril (Zestril) 10 mg PO QDAY [facility] Last Admin: 02/10/20 10:33 Dose: 10 mg Documented by: Lorazepam (Ativan) 2 mg IV Q4H PRN PRN Reason: Agitation Pantoprazole Sodium (Protonix) 40 mg PO QDAY [facility] Last Admin: 02/10/20 10:33 Dose: 40 mg Documented by: Review of Systems All systems: negative Neurological: seizures, change in mentation Physical Examination - Vital Signs Vital Signs: Vital Signs Temp Pulse Resp BP Pulse Ox 98.1 F 126 H 30 H 135/92 98 02/10/20 03:15 02/10/20 03:15 02/10/20 03:15 02/10/20 03:15 02/10/20 03:15 - Physical Exam Narrative exam: Patient is alert, awake, oriented x3 minus month, follows complex commands. No dysarthria or aphasia noted. PERRL, EOMI, VFF, tongue midline, bilaterally intact to LT, no facial weakness noted. 5/5 strength in all extremities. Bilaterally intact light touch. Bilaterally intact to FTN and HTS. Results - Laboratory Findings CBC and BMP: 02/10/20 04:15 02/10/20 04:15 Abnormal Lab Findings: Abnormal Labs 02/10/20 02/10/20 02/10/20 04:15 04:15 04:15 RBC 3.51 L RDW 13.0 L Potassium 3.5 L Carbon Dioxide 18 L Glucose 195 H POC Glucose Magnesium 1.40 L 02/10/20 02/10/20 09:12 11:17 RBC RDW Potassium Carbon Dioxide Glucose POC Glucose 142 H 130 H Magnesium Assessment and Plan Patient is a 69 y/o woman w/ a h/o CVA w/ no residual deficits, HTN, DM, HLD, who p/w altered mental status, and was noted to have a seizure in the ER. According to the patient's clinical findings, she has had a seizure. Plan: 1. Seizure: - CT head: No acute abnormalities. - Check EEG - Check MRI brain - Discussed with patient regarding starting keppra. Discussed risks/benefits, and patient agreed to continuing keppra. - Discussed with patient regarding no driving until cleared by DMV/DPS. Patient understood and accepted this. Further discussed seizure precautions. - If patient has a seizure lasting >2 minutes, recommend giving ativan 1mg IV stat. If seizure does not resolve within 2 minutes, can repeat x1. Please call primary team and neurology stat if patient has a seizure. - Check UA - Will continue to monitor patient. Thank you for allowing me to take part in the care of this patient. Wilbert Islas MD Neurology This clinical encounter was provided via live telemedicine platform. Consultative service was provided for neurology to support local providers. The Acute Teleneurology team should be contacted with any neurologic worsening or clinical changes, new test results, or new patient history that is reported to or discovered by the local team following completion of the teleneurology consultation, specifically that which has the potential to impact the consultative recommendations. Patient/Family was informed the Neurology Consult would happen via TeleHealth consult by way of interactive audio and video telecommunications and consented to receiving care in this manner. Due to the potential for life-threatening deterioration due to underlying neurologic illness, and limited resources available for patient care, telemedicine was used as means of patient care. Telemedicine consultation is limited in the extent of physical exam that can be virtually provided. Time spent evaluating patient includes time for face to face visit via telemedicine, review of medical records, imaging studies and discussion of findings with providers, the patient and/or family.
[2020-02-10] MEDS ORDERED: POTASSIUM CHLORIDE ER 20 MEQ TAB PO NR (17:02)
--- NOTE | 2020-02-10 18:00 | Magnetic Resonance Report ---
MRI BRAIN WITHOUT CONTRAST INDICATION / CLINICAL INFORMATION: Cerebrovascular accident. TECHNIQUE: Multiplanar, multisequence MR images of the brain were obtained. COMPARISON: MRI brain 09/02/[address] 02/10/2020 FINDINGS: BRAIN / INTRACRANIAL CONTENTS: Ventricles and cortical sulci are normal in size and configuration. Th ere is no mass effect. No evidence of intracranial hemorrhage or extra-axial fluid collection is seen . Periventricular and deep white matter foci of abnormal hyperintensity are seen on FLAIR and T2-weig hted scans. These are likely a manifestation of microvascular ischemic change which are stable findin gs in comparison to 09/02/2018. Dilated perivascular spaces are identified in the centrum semiovale of both cerebral hemispheres. No additional areas of abnormal brain parenchymal signal intensity are id entified. There is no indication of remote cortical infarction. Diffusion weighted scans are negative . There is no indication of acute ischemic injury. Microvascular ischemic changes are present within the milvia. Brainstem has an otherwise unremarkable a ppearance. No cerebellar abnormalities are identified. MIDLINE STRUCTURES:No abnormalities are seen to involve the pituitary gland. Pineal region has an unr emarkable appearance. CRANIOCERVICAL JUNCTION: No abnormalities are identified at the craniocervical junction. VASCULAR FLOW-VOIDS: Normal flow-voids are present within the major intracranial vessels. ORBITS: The orbits have an unremarkable appearance. SINUSES / MASTOIDS: There is no indication of inflammatory disease in the paranasal sinuses or mastoi d air cells. ADDITIONAL FINDINGS: None. IMPRESSION: 1. Age-appropriate microvascular ischemic change. 2. No acute intracranial abnormality. No interval change compared to 09/02/2018. Signer Name: Ermias Deluca MD Signed: 02/10/2020 5:56 PM Workstation Name: [id number]
[2020-02-10] MEDS ORDERED: ENOXAPARIN 40 MG/0.4 ML INJ SUB-Q SCH (22:00)
[2020-02-11 04:00] VITALS: BP 141/81
[2020-02-11 06:44] LABS: BUN/Creatinine Ratio 9; Blood Urea Nitrogen 8 mg/dL (7-17); Calcium 9.7 mg/dL (8.4-10.2); Hemolysis Index 88
[2020-02-11] MEDS: LISINOPRIL 10 MG TAB PO SCH (09:51)
[2020-02-11] MEDS: ASPIRIN EC 325 MG TAB PO SCH (09:51)
[2020-02-11] MEDS: levETIRAcetam 750 MG in DEXTROSE 5% IN WATER 100 ML IV SCH (09:51)
[2020-02-11] MEDS: PANTOPRAZOLE 40 MG TAB PO SCH (09:52)
--- NOTE | 2020-02-11 12:12 | Discharge Summary ---
Providers - Providers Date of Admission: 02/10/20 06:30 Date of discharge: 02/11/20 Attending physician: MALINDA RIVAS 02/10/20 04:46 Speech Therapy Evaluation and Treat [CONS] Stat Reason For Exam: failed swallow eval 02/10/20 11:06 Consult to Physician [CONS] Routine Comment: Consulting Provider: KATLYN FISHMAN Physician Instructions: Reason For Exam: acute seizure Primary care physician: INSPECTOR [facility] Hospitalization Condition: Fair Time spent for discharge: 34 minutes Core Measure Documentation - Palliative Care Palliative Care/ Comfort Measures: Not Applicable - Core Measures Any of the following diagnoses?: none Exam - Constitutional Vitals: Temp Pulse Resp BP Pulse Ox 98.0 F 80 18 141/81 100 02/11/20 03:46 02/11/20 03:46 02/11/20 03:46 02/11/20 03:46 02/11/20 03:46 Plan Activity: no driving until cleared by PCP, fall precautions Weight Bearing Status: Weight Bear as Tolerated Diet: diabetic Special Instructions: record blood sugar diary Follow up with: PRIMARY CARE, [Primary Care Provider] - 3-5 Days Prescriptions: Aspirin EC [Halfprin EC] 81 mg PO QDAY #30 tablet. levETIRAcetam [Keppra TAB] 750 mg PO BID #60 tablet
[2020-02-11] MEDS ORDERED: ACETAMINOPHEN 325 MG TAB PO PRN (12:49)
--- NOTE | 2020-02-11 13:33 | Progress Note ---
Assessment and Plan Patient is a 69 y/o woman w/ a h/o CVA w/ no residual deficits, HTN, DM, HLD, who p/w altered mental status, and was noted to have a seizure in the ER. According to the patient's clinical findings, she has had a seizure. Plan: 1. Seizure: - CT head: No acute abnormalities. - EEG: generalized slowing, no seizures or epileptiform. - MRI brain: no acute abnormalities. - Discussed with patient regarding starting keppra. Discussed risks/benefits, and patient agreed to continuing keppra. - Discussed with patient regarding no driving until cleared by DMV/DPS. Patient understood and accepted this. Further discussed seizure precautions. - If patient has a seizure lasting >2 minutes, recommend giving ativan 1mg IV stat. If seizure does not resolve within 2 minutes, can repeat x1. Please call primary team and neurology stat if patient has a seizure. - Check UA- pending. If patient is found to have a UTI, further treatment per primary team. - Recommend for patient to follow up with neurologist in clinic in 3-4 weeks. - Will sign off, as neurologic workup is complete and treatment plan is in place. Please call with any questions. Thank you for allowing me to take part in the care of this patient. Wilbert Islas MD Neurology This clinical encounter was provided via live telemedicine platform. Consultative service was provided for neurology to support local providers. The Acute Teleneurology team should be contacted with any neurologic worsening or clinical changes, new test results, or new patient history that is reported to or discovered by the local team following completion of the teleneurology consultation, specifically that which has the potential to impact the consultative recommendations. Patient/Family was informed the Neurology Consult would happen via TeleHealth consult by way of interactive audio and video telecommunications and consented to receiving care in this manner. Due to the potential for life-threatening deterioration due to underlying neurologic illness, and limited resources available for patient care, telemedicine was used as means of patient care. Telemedicine consultation is l imited in the extent of physical exam that can be virtually provided. Time spent evaluating patient includes time for face to face visit via telemedicine, review of medical records, imaging studies and discussion of findings with providers, the patient and/or family. Subjective Date of service: 02/11/20 Principal diagnosis: Seizure Interval history: No acute events overnight. Objective - Exam Narrative Exam: Patient is alert, awake, oriented x4, follows complex commands. No dysarthria or aphasia noted. PERRL, EOMI, VFF, tongue midline, bilaterally intact to LT, no facial weakness noted. 5/5 strength in all extremities. Bilaterally intact light touch. Bilaterally intact to FTN and HTS. - Vital Sign Vital Signs - 12hr 02/11/20 03:46 Temperature 98.0 F Pulse Rate 80 Respiratory 18 Rate Blood Pressure 141/81 O2 Sat by Pulse 100 Oximetry - Laboratory Findings CBC and BMP: 02/10/20 04:15 02/11/20 05:51 Abnormal Lab Findings: Abnormal Labs 02/10/20 02/10/20 02/10/20 04:15 04:15 04:15 RBC 3.51 L RDW 13.0 L Potassium 3.5 L Carbon Dioxide 18 L Glucose 195 H POC Glucose Magnesium 1.40 L 02/10/20 02/10/20 02/11/20 09:12 11:17 11:14 RBC RDW Potassium Carbon Dioxide Glucose POC Glucose 142 H 130 H 114 H Magnesium
[2020-02-11] MEDS ORDERED: levETIRAcetam 500 MG/5 ML ORAL LIQD PO SCH (22:00)
== END 2020-02-11 16:18 | disposition home or self-care (01) ==
LOC: ED 03:14 → 4A 06:30 → INTOOBSV 06:30
PROVIDERS: ADMIT Internal Medicine Geriatric Medicine; ATTEND Internal Medicine
DX: G93.40 Encephalopathy, unspecified (principal); G40.309 Generalized idiopathic epilepsy and epileptic syndromes, not intractable, without status epilepticus; E87.6 Hypokalemia; E83.42 Hypomagnesemia; E11.9 Type 2 diabetes mellitus without complications; I10 Essential (primary) hypertension; E78.5 Hyperlipidemia, unspecified; E78.00 Pure hypercholesterolemia, unspecified; Z86.73 Personal history of transient ischemic attack (TIA), and cerebral infarction without residual deficits; Z79.84 Long term (current) use of oral hypoglycemic drugs; Z79.899 Other long term (current) drug therapy; Z88.0 Allergy status to penicillin; Z88.1 Allergy status to other antibiotic agents
CPT/HCPCS: 36415; 70450; 70496; 70498; 70551; 80048; 82962; 83735; 85025; 85610; 85670; 85730; 92610; 93005; 95819; 96365; 96366; 96367; 96372; 96375; 96376; 99285; A9270; G0378; J1650; J1953; J2060; J3475; J7030; Q9967; J2405